=== PATIENT | male | born 1975 | race Caucasian/White ===

== ENCOUNTER 2019-12-28 10:56 | Day surgery (SDC) | payer OTHER ==
--- NOTE | 2019-12-28 11:00 | EDM.PDOC ---
<Maria Dolores Manzano - Last Filed: 12/28/19 13:46> ED HPI GENERAL MEDICAL PROBLEM - General Chief Complaint: Abdominal Pain Stated Complaint: STOMACH ACHE Time Seen by Provider: 12/28/19 10:57 Source of Information: Reports: Patient History Limitations: Reports: No Limitations - History of Present Illness INITIAL COMMENTS - FREE TEXT/NARRATIVE: Patient is a 44-year-old male presenting this morning with mid abdominal pain, constant with cramping sensation. States it began last night around midnight waking him up. Patient had a bowel movement but did not notice any changes in his symptoms. Endorses drinking 3-4 beers for dinner +steaks/potatoes. 1/2 PPD tobacco 2-3 beers nightly no ilicit drugs - Related Data Allergies Allergy/AdvReac Type Severity Reaction Status Date / Time No Known Allergies Allergy Verified 12/28/19 11:30 Home Meds: Home Meds . [No Known Home Meds] 12/28/19 [History] ED ROS GENERAL - Review of Systems Constitutional: Denies: Fever, Chills HEENT: Reports: No Symptoms Respiratory: Reports: No Symptoms Cardiovascular: Reports: No Symptoms Endocrine: Reports: No Symptoms GI/Abdominal: Reports: Abdominal Pain : Reports: No Symptoms Musculoskeletal: Reports: No Symptoms Neurological: Reports: No Symptoms ED EXAM, GI/ABD - Physical Exam Exam: See Below General Appearance: Alert, No Apparent Distress GI/Abdominal Exam: Soft, Other ( epigastric tenderness ; mild periumbilical tenderness, no rebound tenderness, no flank tenderness. BS WNL) Course - Vital Signs Text/Narrative:: CT abdomen pelvis ordered. Pain control: onetime morphine IV fluids: 1 liter NS provided Departure - Departure Disposition: Refer to Observation Clinical Impression: Appendicitis - Discharge Information Instructions: Appendicitis, Adult Referrals: PCP,None [Primary Care Provider] - Forms: ED Department Discharge <RogelioLeonardo - Last Filed: 12/28/19 15:32> ED HPI GENERAL MEDICAL PROBLEM - General Source of Information: Reports: Patient History Limitations: Reports: No Limitations - History of Present Illness INITIAL COMMENTS - FREE TEXT/NARRATIVE: 44-year-old male presents with abdominal pain that started last night around midnight. Denies fever, chills, last p.o. = 10:30 AM today. Pain is constant, described as cramping sensation, nonradiating, exacerbated by movement and driving to the ER. ROS: A 10-point review of systems, other than pertinent positives and negatives as stated per HPI, is otherwise negative PHYSICAL EXAM General: AOx4, GCS = 15, No distress HEENT: dry mucous membrane Neck: supple, no meningismus, no Kernig or Brudzinski Cardiac: S1S2 RRR Respiratory: CTAB, no crackles or rales, no wheezing Abdomen: Soft, mild tenderness diffusely, no rebound or guarding, nondistended, no pulsatile mass. Back: nontender Musculoskeletal: NVI distally, no deformity Neuro: No focal deficits, CN 2 - 12 WNL. Abdomen Pain Score (Numeric/FACES): 7 ED ROS GENERAL - Review of Systems Review Of Systems: Comprehensive ROS is negative, except as noted in HPI. ED EXAM, GI/ABD - Physical Exam Exam: See Below Course - Vital Signs Last Recorded V/S: Last Vital Signs Temp 98.1 F 12/28/19 11:25 Pulse 71 12/28/19 13:36 Resp 16 12/28/19 13:36 BP 175/100 H 12/28/19 13:36 Pulse Ox 96 12/28/19 13:36 - Orders/Labs/Meds Orders: Active Orders 24 hr Category Date Time Status EKG Documentation Completion [RC] STAT Care 12/28/19 11:46 Active CORONAVIRUS COVID-19 PCR PHL Stat Lab 12/28/19 14:37 Ordered Sodium Chloride 0.9% [Saline Flush] Med 12/28/19 11:33 Active 10 ml FLUSH ASDIRECTED PRN Sodium Chloride 0.9% [Saline Flush] Med 12/28/19 11:33 Active 2.5 ml FLUSH ASDIRECTED PRN Saline Lock Insert [OM.PC] Stat Oth 12/28/19 11:33 Ordered Medication Orders Sodium Chloride (Saline Flush) 10 ml FLUSH ASDIRECTED PRN PRN Reason: Keep Vein Open Last Admin: 12/28/19 12:06 Dose: 10 ml Documented by: [id number] Sodium Chloride (Saline Flush) 2.5 ml FLUSH ASDIRECTED PRN PRN Reason: Keep Vein Open Last Admin: 12/28/19 12:06 Dose: 2.5 ml Documented by: [id number] Labs: Laboratory Tests 12/28/19 12/28/19 12/28/19 Range/Units 11:40 11:45 11:45 WBC 9.93 (4.0-11.0) K/uL RBC 4.67 (4.50-5.90) M/uL Hgb 15.6 (13.0-17.0) g/dL Hct 44.7 (38.0-50.0) % MCV 95.7 (80.0-98.0) fL MCH 33.4 H (27.0-32.0) pg MCHC 34.9 (31.0-37.0) g/dL RDW Std Deviation 43.9 (28.0-62.0) fl RDW Coeff of Matt 13 (11.0-15.0) % Plt Count 182 (150-400) K/uL MPV 10.70 (7.40-12.00) fL Neut % (Auto) 76.2 (48.0-80.0) % Lymph % (Auto) 12.7 L (16.0-40.0) % [place] % (Auto) 9.1 (0.0-15.0) % Eos % (Auto) 1.7 (0.0-7.0) % Baso % (Auto) 0.3 (0.0-1.5) % Neut # (Auto) 7.6 H (1.4-5.7) K/uL Lymph # (Auto) 1.3 (0.6-2.4) K/uL [place] # (Auto) 0.9 H (0.0-0.8) K/uL Eos # (Auto) 0.2 (0.0-0.7) K/uL Baso # (Auto) 0.0 (0.0-0.1) K/uL Nucleated RBC % 0.0 /100WBC Nucleated RBCs # 0 K/uL Sodium 137 (136-148) mmol/L Potassium 4.2 (3.5-5.1) mmol/L Chloride 101 (98-107) mmol/L Carbon Dioxide 28.3 (21.0-32.0) mmol/L BUN 10 (7.0-18.0) mg/dL Creatinine 1.0 (0.8-1.3) mg/dL Est Cr Clr Drug Dosing 93.28 mL/min Estimated GFR (MDRD) > 60.0 ml/min Glucose 90 (74-106) mg/dL Calcium 9.0 (8.5-10.1) mg/dL Total Bilirubin 0.7 (0.2-1.0) mg/dL AST 17 (15-37) IU/L ALT 41 (14-63) IU/L Alkaline Phosphatase 30 L (46-116) U/L Troponin I (0.000-0.056) ng/mL Total Protein 7.0 (6.4-8.2) g/dL Albumin 4.2 (3.4-5.0) g/dL Globulin 2.8 (2.6-4.0) g/dL Albumin/Globulin Ratio 1.5 (0.9-1.6) Lipase 74 (73-393) U/L Urine Color YELLOW Urine Appearance CLEAR Urine pH 6.0 (5.0-8.0) Ur Specific [place] 1.025 (1.001-1.035) Urine Protein NEGATIVE (NEGATIVE) mg/dL Urine Glucose (UA) NEGATIVE (NEGATIVE) mg/dL Urine Ketones 15 H (NEGATIVE) mg/dL Urine Occult Blood TRACE-INTACT H (NEGATIVE) Urine Nitrite NEGATIVE (NEGATIVE) Urine Bilirubin NEGATIVE (NEGATIVE) Urine Urobilinogen 0.2 (<2.0) EU/dL Ur Leukocyte Esterase NEGATIVE (NEGATIVE) Urine RBC 0-2 (0-2/HPF) Urine WBC 0-1 (0-5/HPF) Ur Epithelial Cells RARE (NONE-FEW) Urine Bacteria RARE (NEGATIVE) SARS-CoV-2 RNA (RT-PCR) (NEGATIVE) 12/28/19 12/28/19 Range/Units 11:45 14:40 WBC (4.0-11.0) K/uL RBC (4.50-5.90) M/uL Hgb (13.0-17.0) g/dL Hct (38.0-50.0) % MCV (80.0-98.0) fL MCH (27.0-32.0) pg MCHC (31.0-37.0) g/dL RDW Std Deviation (28.0-62.0) fl RDW Coeff of Matt (11.0-15.0) % Plt Count (150-400) K/uL MPV (7.40-12.00) fL Neut % (Auto) (48.0-80.0) % Lymph % (Auto) (16.0-40.0) % [place] % (Auto) (0.0-15.0) % Eos % (Auto) (0.0-7.0) % Baso % (Auto) (0.0-1.5) % Neut # (Auto) (1.4-5.7) K/uL Lymph # (Auto) (0.6-2.4) K/uL [place] # (Auto) (0.0-0.8) K/uL Eos # (Auto) (0.0-0.7) K/uL Baso # (Auto) (0.0-0.1) K/uL Nucleated RBC % /100WBC Nucleated RBCs # K/uL Sodium (136-148) mmol/L Potassium (3.5-5.1) mmol/L Chloride (98-107) mmol/L Carbon Dioxide (21.0-32.0) mmol/L BUN (7.0-18.0) mg/dL Creatinine (0.8-1.3) mg/dL Est Cr Clr Drug Dosing mL/min Estimated GFR (MDRD) ml/min Glucose (74-106) mg/dL Calcium (8.5-10.1) mg/dL Total Bilirubin (0.2-1.0) mg/dL AST (15-37) IU/L ALT (14-63) IU/L Alkaline Phosphatase (46-116) U/L Troponin I <0.050 (0.000-0.056) ng/mL Total Protein (6.4-8.2) g/dL Albumin (3.4-5.0) g/dL Globulin (2.6-4.0) g/dL Albumin/Globulin Ratio (0.9-1.6) Lipase (73-393) U/L Urine Color Urine Appearance Urine pH (5.0-8.0) Ur Specific [place] (1.001-1.035) Urine Protein (NEGATIVE) mg/dL Urine Glucose (UA) (NEGATIVE) mg/dL Urine Ketones (NEGATIVE) mg/dL Urine Occult Blood (NEGATIVE) Urine Nitrite (NEGATIVE) Urine Bilirubin (NEGATIVE) Urine Urobilinogen (<2.0) EU/dL Ur Leukocyte Esterase (NEGATIVE) Urine RBC (0-2/HPF) Urine WBC (0-5/HPF) Ur Epithelial Cells (NONE-FEW) Urine Bacteria (NEGATIVE) SARS-CoV-2 RNA (RT-PCR) NEGATIVE (NEGATIVE) Meds: Medications Generic Name Dose Route Start Last Admin Trade Name Freq PRN Reason Stop Dose Admin Sodium Chloride 10 ml 12/28/19 11:33 12/28/19 12:06 Saline Flush FLUSH 10 ml ASDIRECTED PRN Administration Keep Vein Open Sodium Chloride 2.5 ml 12/28/19 11:33 12/28/19 12:06 Saline Flush FLUSH 2.5 ml ASDIRECTED PRN Administration Keep Vein Open Discontinued Medications Generic Name Dose Route Start Last Admin Trade Name Freq PRN Reason Stop Dose Admin Sodium Chloride 1,000 mls @ 999 mls/hr 12/28/19 11:33 12/28/19 12:05 Normal Saline IV 12/28/19 12:33 999 mls/hr BOLUS ONE Administration Sodium Chloride 1,000 mls @ 999 mls/hr 12/28/19 12:41 12/28/19 13:32 Normal Saline IV 12/28/19 13:41 999 mls/hr STAT ONE Administration Iopamidol 100 ml 12/28/19 14:15 12/28/19 14:16 Isovue-370 (76%) IVPUSH 12/28/19 14:16 100 ml ONETIME ONE Administration Morphine Sulfate 2 mg 12/28/19 13:17 12/28/19 13:35 Morphine IVPUSH 12/28/19 13:18 2 mg ONETIME ONE Administration Sodium Chloride 2.5 ml 12/28/19 11:33 Saline Flush FLUSH ASDIRECTED PRN Keep Vein Open - Re-Assessments/Exams Free Text/Narrative Re-Assessment/Exam: 12/28/19 14:[address] Rivas, he will come assess the patient in the ER. 12/28/19 15:31 Dr. Rivas in the ER, april admit to obs. Ordered IV Abx in the ER. Departure - Departure Time of Disposition: 15:30 Condition: Good - Discharge Information *PRESCRIPTION DRUG MONITORING PROGRAM REVIEWED*: Not Applicable *COPY OF PRESCRIPTION DRUG MONITORING REPORT IN PATIENT JOHNNA: Not Applicable Critical Care Note - Critical Care Note Total Time (mins): 40 Comments: Critical Care: The high probability of sudden, clinically significant deterioration in the patient's condition required the highest level of my preparedness to intervene urgently. The services I provided to this patient were to treat and/or prevent clinically significant deterioration. Services included the following: chart data review, reviewing nursing notes and/or old charts, documentation time, operations consultant collaboration regarding findings and treatment options, medication orders and management, direct patient care, vital sign assessments and ordering, interpreting and reviewing diagnostic studies/lab tests. Aggregate critical care time includes only time during which I was engaged in work directly related to the patient's care, as described above, whether at the bedside or elsewhere in the Emergency Department. It did not include time spent performing other reported procedures or the services of residents, students, nurses or physician assistants. Frequent interventions and/or frequent repeat evaluations were required as well as counseling and coordination of care regarding prognosis, treatments, and discussions with patient, staff and consultants. Critical Care (excluding other procedures): 40 minutes Sepsis Event Note (ED) - Focused Exam Vital Signs: Vital Signs Temp Pulse Resp BP Pulse Ox 12/28/19 13:36 71 16 175/100 H 96 12/28/19 11:25 98.1 F 68 16 176/96 H 97 - My Orders Last 24 Hours: My Active Orders 12/28/19 14:37 CORONAVIRUS COVID-19 PCR PHL Stat - Assessment/Plan Last 24 Hours: My Active Orders 12/28/19 14:37 CORONAVIRUS COVID-19 PCR PHL Stat
[2019-12-28] MEDS ORDERED: Sodium Chloride 0.9% 10 ML Syringe FLUSH PRN (11:33)
[2019-12-28] MEDS ORDERED: Sodium Chloride 0.9% 1,000 ML IV ONE ×2 (11:33→12:41)
[2019-12-28] MEDS ORDERED: Sodium Chloride 0.9% 2.5 ML Syringe FLUSH PRN ×2 (11:33)
[2019-12-28 12:35] LABS: BLOOD UREA NITROGEN,BUN 10 mg/dL (7.0-18.0); CARBON DIOXIDE,CO2 28.3 mmol/L (21.0-32.0); CHLORIDE,CL 101 mmol/L (98-107); GLUCOSE RANDOM 90 mg/dL (74-106); LIPASE 74 U/L (73-393); POTASSIUM,K 4.2 mmol/L (3.5-5.1); SODIUM,NA 137 mmol/L (136-148)
[2019-12-28] MEDS ORDERED: Morphine 4 MG/ML Syringe IVPUSH ONE ×3 (13:17→17:19)
[2019-12-28] MEDS ORDERED: Iopamidol 755 Mg/ML 100 ML Bottle IVPUSH ONE (14:15)
--- NOTE | 2019-12-28 14:33 | CT ---
CT abdomen and pelvis Technique: Multiple axial sections were obtained from above the dome of the diaphragm inferiorly through the pubic symphysis. Intravenous contrast was utilized. No oral contrast has been given. Dilated tubular structure is seen believed to represent the appendix within the right lower abdomen. Mild inflammatory change is seen around this area and findings are felt compatible with appendicitis. Other findings: Visualized lung bases shows nothing acute. Liver contains no focal abnormality. Gallbladder contains no calcified gallstones. Spleen appears within normal limits. Adrenal glands show no nodule. Kidneys show symmetric contrast enhancement without hydronephrosis or mass. Pancreas shows no abnormality. Aorta shows no aneurysm. No retroperitoneal adenopathy or mesenteric abnormalities are seen. No pelvic mass or adenopathy is seen. No free fluid or other inflammatory change is seen. Bone window settings were reviewed which shows no acute osseous finding. Impression: 1. Findings which are felt compatible with appendicitis. Diagnostic code #5 This report was dictated in MDT
[2019-12-28] MEDS ORDERED: cefOXitin 2 GM in Premix Bag 1 BAG IV ONE (15:32)
[2019-12-28] MEDS ORDERED: Ondansetron 4 MG/2 ML SDV IVPUSH ONE (15:32)
[2019-12-28] MEDS ORDERED: fentaNYL 100 MCG/2 ML SDV ONE (15:36)
[2019-12-28] MEDS ORDERED: Propofol 200 MG/20 ML SDV ONE (15:36)
[2019-12-28] MEDS ORDERED: Ondansetron 4 MG/2 ML SDV ONE (15:36)
[2019-12-28] MEDS ORDERED: Rocuronium Bromide 50 MG/5 ML Syringe ONE (15:37)
[2019-12-28] MEDS ORDERED: Ketorolac 30 MG/ML SDV ONE (15:37)
[2019-12-28] MEDS ORDERED: Dexamethasone 4 MG/ML 5 ML MDV ONE (15:37)
[2019-12-28] MEDS ORDERED: Midazolam 1 MG/ML 2 ML SDV ONE (15:37)
[2019-12-28] MEDS ORDERED: Lactated Ringers 1,000 ML IV SCH ×2 (15:45)
[2019-12-28] MEDS ORDERED: Bupivacaine 0.5% 10 ML SDV ONE (15:47)
[2019-12-28] MEDS ORDERED: ceFAZolin 1 GM Vial ONE (15:47)
--- NOTE | 2019-12-28 15:49 | PCM.CONS ---
H&P History of Present Illness - General Date of Service: 12/28/19 Admit Problem/Dx: Admission Diagnosis/Problem Admission Diagnosis/Problem Appendicitis Source of Information: Patient History Limitations: Reports: No Limitations - History of Present Illness Initial Comments - Free Text/Narative: Patient is a 44-year-old gentleman who presented to the emergency room about 11 :30 this morning complaining of significant abdominal pain, primarily in the right lower quadrant. Patient states the pain started late last night and has become progressively more intense as the day has gone on. He cannot find a comfortable position. He did note on the trip to the emergency room. The bumps in the road hit. He's had some nausea, no vomiting. Says his appetite is poor. This morning, but he was able to eat yesterday. He denies any fever or chills. Never had anything like this in the past. No prior history of kidney stones. Symptom Onset Date: 12/27/19 Duration of Symptoms: Reports: Hour(s):, Getting Worse Location: Reports: Abdomen Quality: Reports: Pressure Severity: Moderate Improves with: Reports: Rest Worsens with: Reports: Movement Context: Reports: Sick Contact Associated Symptoms: Reports: Loss of Appetite, Nausea/Vomiting. Denies: Confusion, Chest Pain, Fever/Chills, Headaches, Malaise Abdomen Pain Score (Numeric/FACES): 7 - Related Data Allergies/Adverse Reactions: Allergies Allergy/AdvReac Type Severity Reaction Status Date / Time No Known Allergies Allergy Verified 12/28/19 11:30 Home Medications: Home Meds . [No Known Home Meds] 12/28/19 [History] Past Medical History HEENT History: Reports: None Cardiovascular History: Reports: None Respiratory History: Reports: None Genitourinary History: Reports: None Musculoskeletal History: Reports: None Neurological History: Reports: None Psychiatric History: Reports: None Endocrine/Metabolic History: Reports: None Hematologic History: Reports: None Immunologic History: Reports: None Oncologic (Cancer) History: Reports: None Dermatologic History: Reports: None - Infectious Disease History Infectious Disease History: Reports: Chicken Pox - Past Surgical History Head Surgeries/Procedures: Reports: None HEENT Surgical History: Reports: Tonsillectomy GI Surgical History: Reports: Colonoscopy Social & Family History - Tobacco Use Smoking Status *Q: Current Every Day Smoker Years of Tobacco use: 27 Packs/Tins Daily: 0.5 - Recreational Drug Use Recreational Drug Use: No H&P Review of Systems - Review of Systems: Review Of Systems: See Below General: Reports: Decreased Appetite. Denies: Fever, Chills, Malaise, Weakness, Fatigue, Weight Loss HEENT: Reports: No Symptoms Pulmonary: Denies: Shortness of Breath, Wheezing, Pleuritic Chest Pain Cardiovascular: Denies: Chest Pain, Palpitations Gastrointestinal: Reports: Abdominal Pain, Anorexia, Flatus, Nausea. Denies: Black Stool, Bloody Stool, Constipation, Diarrhea, Distension, Vomiting Genitourinary: Denies: Dysuria, Frequency, Burning, Pain, Urgency Musculoskeletal: Reports: No Symptoms Skin: Denies: Cyanosis, Jaundice, Mottled, Pallor, Diaphoresis Psychiatric: Denies: Confusion, Depression, Mood Lability, Anxiety Neurological: Denies: Confusion, Dizziness, Headache, Numbness Hematologic/Lymphatic: Reports: No Symptoms Immunologic: Reports: No Symptoms Exam - Exam Exam: See Below - Vital Signs Vital Signs: Last Vital Signs Temp 98.1 F 12/28/19 11:25 Pulse 71 12/28/19 13:36 Resp 16 12/28/19 13:36 BP 175/100 H 12/28/19 13:36 Pulse Ox 96 12/28/19 13:36 Weight: 206 lb 9.17 oz - Exam Quality Assessment: No: Central Line/PICC, Urinary Catheter, DVT Prophylaxis General: Alert, Oriented, Cooperative, Mild Distress HEENT: Conjunctiva Clear, EACs Clear, Nares Patent, Pupils Equal, Pupils Reactive. No: Scleral Icterus Neck: Supple, Trachea Midline Lungs: Clear to Auscultation, Normal Respiratory Effort. No: Wheezing Cardiovascular: Regular Rate, Regular Rhythm, Normal S1, Normal S2. No: Tachycardia GI/Abdominal Exam: Normal Bowel Sounds, Soft, No Distention, Rebound, Tender (Right lower quadrant), Mass. No: Guarding, Rigid, Hernia (Male) Exam: No Hernia, Normal Inspection Rectal (Males) Exam: Deferred Back Exam: Normal Inspection, Full Range of Motion Extremities: Normal Inspection, Normal Range of Motion, Non-Tender, No Pedal Edema Peripheral Pulses: 4+: Posterior Tibial (L), Posterior Tibial (R), Dorsalis Pedis (L), Dorsalis Pedis (R) Skin: Warm, Dry, Intact Neurological: Cranial Nerves Intact Psychiatric: Alert, Normal Affect, Normal Mood - Patient Data Lab Results Last 24 hrs: Laboratory Results - last 24 hr 12/28/19 12/28/19 12/28/19 Range/Units 11:40 11:45 11:45 WBC 9.93 (4.0-11.0) K/uL RBC 4.67 (4.50-5.90) M/uL Hgb 15.6 (13.0-17.0) g/dL Hct 44.7 (38.0-50.0) % MCV 95.7 (80.0-98.0) fL MCH 33.4 H (27.0-32.0) pg MCHC 34.9 (31.0-37.0) g/dL RDW Std Deviation 43.9 (28.0-62.0) fl RDW Coeff of Matt 13 (11.0-15.0) % Plt Count 182 (150-400) K/uL MPV 10.70 (7.40-12.00) fL Neut % (Auto) 76.2 (48.0-80.0) % Lymph % (Auto) 12.7 L (16.0-40.0) % [place] % (Auto) 9.1 (0.0-15.0) % Eos % (Auto) 1.7 (0.0-7.0) % Baso % (Auto) 0.3 (0.0-1.5) % Neut # (Auto) 7.6 H (1.4-5.7) K/uL Lymph # (Auto) 1.3 (0.6-2.4) K/uL [place] # (Auto) 0.9 H (0.0-0.8) K/uL Eos # (Auto) 0.2 (0.0-0.7) K/uL Baso # (Auto) 0.0 (0.0-0.1) K/uL Nucleated RBC % 0.0 /100WBC Nucleated RBCs # 0 K/uL Sodium 137 (136-148) mmol/L Potassium 4.2 (3.5-5.1) mmol/L Chloride 101 (98-107) mmol/L Carbon Dioxide 28.3 (21.0-32.0) mmol/L BUN 10 (7.0-18.0) mg/dL Creatinine 1.0 (0.8-1.3) mg/dL Est Cr Clr Drug Dosing 93.28 mL/min Estimated GFR (MDRD) > 60.0 ml/min Glucose 90 (74-106) mg/dL Calcium 9.0 (8.5-10.1) mg/dL Total Bilirubin 0.7 (0.2-1.0) mg/dL AST 17 (15-37) IU/L ALT 41 (14-63) IU/L Alkaline Phosphatase 30 L (46-116) U/L Troponin I (0.000-0.056) ng/mL Total Protein 7.0 (6.4-8.2) g/dL Albumin 4.2 (3.4-5.0) g/dL Globulin 2.8 (2.6-4.0) g/dL Albumin/Globulin Ratio 1.5 (0.9-1.6) Lipase 74 (73-393) U/L Urine Color YELLOW Urine Appearance CLEAR Urine pH 6.0 (5.0-8.0) Ur Specific [place] 1.025 (1.001-1.035) Urine Protein NEGATIVE (NEGATIVE) mg/dL Urine Glucose (UA) NEGATIVE (NEGATIVE) mg/dL Urine Ketones 15 H (NEGATIVE) mg/dL Urine Occult Blood TRACE-INTACT H (NEGATIVE) Urine Nitrite NEGATIVE (NEGATIVE) Urine Bilirubin NEGATIVE (NEGATIVE) Urine Urobilinogen 0.2 (<2.0) EU/dL Ur Leukocyte Esterase NEGATIVE (NEGATIVE) Urine RBC 0-2 (0-2/HPF) Urine WBC 0-1 (0-5/HPF) Ur Epithelial Cells RARE (NONE-FEW) Urine Bacteria RARE (NEGATIVE) SARS-CoV-2 RNA (RT-PCR) (NEGATIVE) 12/28/19 12/28/19 Range/Units 11:45 14:40 WBC (4.0-11.0) K/uL RBC (4.50-5.90) M/uL Hgb (13.0-17.0) g/dL Hct (38.0-50.0) % MCV (80.0-98.0) fL MCH (27.0-32.0) pg MCHC (31.0-37.0) g/dL RDW Std Deviation (28.0-62.0) fl RDW Coeff of Matt (11.0-15.0) % Plt Count (150-400) K/uL MPV (7.40-12.00) fL Neut % (Auto) (48.0-80.0) % Lymph % (Auto) (16.0-40.0) % [place] % (Auto) (0.0-15.0) % Eos % (Auto) (0.0-7.0) % Baso % (Auto) (0.0-1.5) % Neut # (Auto) (1.4-5.7) K/uL Lymph # (Auto) (0.6-2.4) K/uL [place] # (Auto) (0.0-0.8) K/uL Eos # (Auto) (0.0-0.7) K/uL Baso # (Auto) (0.0-0.1) K/uL Nucleated RBC % /100WBC Nucleated RBCs # K/uL Sodium (136-148) mmol/L Potassium (3.5-5.1) mmol/L Chloride (98-107) mmol/L Carbon Dioxide (21.0-32.0) mmol/L BUN (7.0-18.0) mg/dL Creatinine (0.8-1.3) mg/dL Est Cr Clr Drug Dosing mL/min Estimated GFR (MDRD) ml/min Glucose (74-106) mg/dL Calcium (8.5-10.1) mg/dL Total Bilirubin (0.2-1.0) mg/dL AST (15-37) IU/L ALT (14-63) IU/L Alkaline Phosphatase (46-116) U/L Troponin I <0.050 (0.000-0.056) ng/mL Total Protein (6.4-8.2) g/dL Albumin (3.4-5.0) g/dL Globulin (2.6-4.0) g/dL Albumin/Globulin Ratio (0.9-1.6) Lipase (73-393) U/L Urine Color Urine Appearance Urine pH (5.0-8.0) Ur Specific [place] (1.001-1.035) Urine Protein (NEGATIVE) mg/dL Urine Glucose (UA) (NEGATIVE) mg/dL Urine Ketones (NEGATIVE) mg/dL Urine Occult Blood (NEGATIVE) Urine Nitrite (NEGATIVE) Urine Bilirubin (NEGATIVE) Urine Urobilinogen (<2.0) EU/dL Ur Leukocyte Esterase (NEGATIVE) Urine RBC (0-2/HPF) Urine WBC (0-5/HPF) Ur Epithelial Cells (NONE-FEW) Urine Bacteria (NEGATIVE) SARS-CoV-2 RNA (RT-PCR) NEGATIVE (NEGATIVE) Result Diagrams: 12/28/19 11:45 12/28/19 11:45 Sepsis Event Note - Evaluation Sepsis Screening Result: No Definite Risk - Focused Exam Vital Signs: Vital Signs Temp Pulse Resp BP Pulse Ox 12/28/19 13:36 71 16 175/100 H 96 12/28/19 11:25 98.1 F 68 16 176/96 H 97 Date Exam was Performed: 12/28/19 Time Exam was Performed: 15:45 Consult PN Assessment/Plan (1) Acute abdomen SNOMED Code(s): 3359349 Code(s): R10.0 - ACUTE ABDOMEN Current Visit: Yes (2) Appendicitis SNOMED Code(s): 53135917 Code(s): K37 - UNSPECIFIED APPENDICITIS Current Visit: Yes Qualifiers: Appendicitis type: acute appendicitis Problem List Initiated/Reviewed/Updated: Yes My Orders Last 24 Hours: My Active Orders 12/28/19 15:43 Antiembolic Devices [RC] PER UNIT ROUTINE Insert Urinary Catheter [OM.PC] Timed Oxygen Therapy [RC] ASDIRECTED RT Incentive Spirometry [RC] Q1HWA Skin Preparation [RC] .PREOP Urinary Catheter Assessment [RC] ASDIRECTED Urinary Catheter Assessment [RC] ASDIRECTED Urinary Catheter Assessment [RC] ASDIRECTED Vital Signs [RC] PER UNIT ROUTINE Antiembolic Hose [OM.PC] Routine Resuscitation Status Routine 12/28/19 15:45 Lactated Ringers @ 125 MLS/HR(1000ml) Lactated Ringers [Ringers, Lactated] 1,000 ml IV ASDIRECTED 12/28/19 Dinner Nothing Per Oral Diet [DIET] Plan: Laparoscopic appendectomy, possible open appendectomy. Both operative procedures, along with the risks, including, but not limited to, bleeding, infection, pneumonia, deep venous thrombosis, pulmonary emboli, myocardial infarction, and adjacent organ injury have been reviewed with the patient who voices understanding, offers no questions and agrees to proceed.
[2019-12-28] MEDS ORDERED: Sugammadex Sodium 200 MG/2 ML VIAL ONE (15:59)
[2019-12-28] MEDS ORDERED: Glycopyrrolate 0.2 MG/ML SDV ONE (16:00)
--- NOTE | 2019-12-28 16:13 | PCM.PREANE ---
Preanesthetic Assessment - Procedure Proposed Procedure: LAP APPY - Anesthesia/Transfusion/Family Hx Anesthesia History: Prior Anesthesia Without Reaction Type of Anesthesia Reaction: Unknown Family History of Anesthesia Reaction: No Transfusion History: No Prior Transfusion(s) Intubation History: Intubation other than for Surgery in past - Review of Systems General: No Symptoms Pulmonary: Other (Resumed smoking recently.) Cardiovascular: No Symptoms, Other (BP elevated. Denies HTN) Gastrointestinal: Abdominal Pain Neurological: No Symptoms Other: Reports: Anxiety - Physical Assessment NPO Status Date: 12/28/19 NPO Status Time: 10:00 (Liquids at 10a. No solids since 8pm 12/26.) Vital Signs: Last Vital Signs Temp 36.7 C 12/28/19 11:25 Pulse 71 12/28/19 13:36 Resp 16 12/28/19 13:36 BP 175/100 H 12/28/19 13:36 Pulse Ox 96 12/28/19 13:36 Height: 1.75 m Weight: 93.7 kg ASA Class: 2E Mental Status: Alert & Oriented x3 Airway Class: Mallampati = 2 Dentition: Reports: Normal Dentition Thyro-Mental Finger Breadths: 3 Mouth Opening Finger Breadths: 3 ROM/Head Extension: Full Lungs: Clear to Auscultation Cardiovascular: Regular Rate - Lab Values: Laboratory Last Values WBC 9.93 K/uL (4.0-11.0) 12/28/19 11:45 RBC 4.67 M/uL (4.50-5.90) 12/28/19 11:45 Hgb 15.6 g/dL (13.0-17.0) 12/28/19 11:45 Hct 44.7 % (38.0-50.0) 12/28/19 11:45 MCV 95.7 fL (80.0-98.0) 12/28/19 11:45 MCH 33.4 pg (27.0-32.0) H 12/28/19 11:45 MCHC 34.9 g/dL (31.0-37.0) 12/28/19 11:45 RDW Std Deviation 43.9 fl (28.0-62.0) 12/28/19 11:45 RDW Coeff of Matt 13 % (11.0-15.0) 12/28/19 11:45 Plt Count 182 K/uL (150-400) 12/28/19 11:45 MPV 10.70 fL (7.40-12.00) 12/28/19 11:45 Neut % (Auto) 76.2 % (48.0-80.0) 12/28/19 11:45 Lymph % (Auto) 12.7 % (16.0-40.0) L 12/28/19 11:45 Payne % (Auto) 9.1 % (0.0-15.0) 12/28/19 11:45 Eos % (Auto) 1.7 % (0.0-7.0) 12/28/19 11:45 Baso % (Auto) 0.3 % (0.0-1.5) 12/28/19 11:45 Neut # (Auto) 7.6 K/uL (1.4-5.7) H 12/28/19 11:45 Lymph # (Auto) 1.3 K/uL (0.6-2.4) 12/28/19 11:45 Payne # (Auto) 0.9 K/uL (0.0-0.8) H 12/28/19 11:45 Eos # (Auto) 0.2 K/uL (0.0-0.7) 12/28/19 11:45 Baso # (Auto) 0.0 K/uL (0.0-0.1) 12/28/19 11:45 Nucleated RBC % 0.0 /100WBC 12/28/19 11:45 Nucleated RBCs # 0 K/uL 12/28/19 11:45 Sodium 137 mmol/L (136-148) 12/28/19 11:45 Potassium 4.2 mmol/L (3.5-5.1) 12/28/19 11:45 Chloride 101 mmol/L (98-107) 12/28/19 11:45 Carbon Dioxide 28.3 mmol/L (21.0-32.0) 12/28/19 11:45 BUN 10 mg/dL (7.0-18.0) 12/28/19 11:45 Creatinine 1.0 mg/dL (0.8-1.3) 12/28/19 11:45 Est Cr Clr Drug Dosing 93.28 mL/min 12/28/19 11:45 Estimated GFR (MDRD) > 60.0 ml/min 12/28/19 11:45 Glucose 90 mg/dL (74-106) 12/28/19 11:45 Calcium 9.0 mg/dL (8.5-10.1) 12/28/19 11:45 Total Bilirubin 0.7 mg/dL (0.2-1.0) 12/28/19 11:45 AST 17 IU/L (15-37) 12/28/19 11:45 ALT 41 IU/L (14-63) 12/28/19 11:45 Alkaline Phosphatase 30 U/L (46-116) L 12/28/19 11:45 Troponin I <0.050 ng/mL (0.000-0.056) 12/28/19 11:45 Total Protein 7.0 g/dL (6.4-8.2) 12/28/19 11:45 Albumin 4.2 g/dL (3.4-5.0) 12/28/19 11:45 Globulin 2.8 g/dL (2.6-4.0) 12/28/19 11:45 Albumin/Globulin Ratio 1.5 (0.9-1.6) 12/28/19 11:45 Lipase 74 U/L (73-393) 12/28/19 11:45 Urine Color YELLOW 12/28/19 11:40 Urine Appearance CLEAR 12/28/19 11:40 Urine pH 6.0 (5.0-8.0) 12/28/19 11:40 Ur Specific [place] 1.025 (1.001-1.035) 12/28/19 11:40 Urine Protein NEGATIVE mg/dL (NEGATIVE) 12/28/19 11:40 Urine Glucose (UA) NEGATIVE mg/dL (NEGATIVE) 12/28/19 11:40 Urine Ketones 15 mg/dL (NEGATIVE) H 12/28/19 11:40 Urine Occult Blood TRACE-INTACT (NEGATIVE) H 12/28/19 11:40 Urine Nitrite NEGATIVE (NEGATIVE) 12/28/19 11:40 Urine Bilirubin NEGATIVE (NEGATIVE) 12/28/19 11:40 Urine Urobilinogen 0.2 EU/dL (<2.0) 12/28/19 11:40 Ur Leukocyte Esterase NEGATIVE (NEGATIVE) 12/28/19 11:40 Urine RBC 0-2 (0-2/HPF) 12/28/19 11:40 Urine WBC 0-1 (0-5/HPF) 12/28/19 11:40 Ur Epithelial Cells RARE (NONE-FEW) 12/28/19 11:40 Urine Bacteria RARE (NEGATIVE) 12/28/19 11:40 SARS-CoV-2 RNA (RT-PCR) NEGATIVE (NEGATIVE) 12/28/19 14:40 - Allergies Allergies/Adverse Reactions: Allergies Allergy/AdvReac Type Severity Reaction Status Date / Time No Known Allergies Allergy Verified 12/28/19 11:30 - Blood Blood Available: No Product(s) Available: None - Anesthesia Plan Pre-Op Medication Ordered: None - Acknowledgements Anesthesia Type Planned: General Anesthesia Pt an Appropriate Candidate for the Planned Anesthesia: Yes Alternatives and Risks of Anesthesia Discussed w Pt/Guardian: Yes Pt/Guardian Understands and Agrees with Anesthesia Plan: Yes Additional Comments: Discussed. ? answered. Permit signed. Acceptable candidate. PreAnesthesia Questionnaire HEENT History: Reports: None Cardiovascular History: Reports: None Respiratory History: Reports: None Genitourinary History: Reports: None Musculoskeletal History: Reports: None Neurological History: Reports: None Psychiatric History: Reports: None Endocrine/Metabolic History: Reports: None Hematologic History: Reports: None Immunologic History: Reports: None Oncologic (Cancer) History: Reports: None Dermatologic History: Reports: None - Infectious Disease History Infectious Disease History: Reports: Chicken Pox - Past Surgical History Head Surgeries/Procedures: Reports: None HEENT Surgical History: Reports: Tonsillectomy GI Surgical History: Reports: Colonoscopy - SUBSTANCE USE Smoking Status *Q: Current Every Day Smoker Recreational Drug Use History: No - HOME MEDS Home Medications: Home Meds . [No Known Home Meds] 12/28/19 [History] - CURRENT (IN HOUSE) MEDS Current Meds: Current Medications Lactated Ringer's (Ringers, Lactated) 1,000 mls @ 125 mls/hr IV ASDIRECTED NANY Sodium Chloride (Saline Flush) 10 ml FLUSH ASDIRECTED PRN PRN Reason: Keep Vein Open Last Admin: 12/28/19 12:06 Dose: 10 ml Documented by: Sodium Chloride (Saline Flush) 2.5 ml FLUSH ASDIRECTED PRN PRN Reason: Keep Vein Open Last Admin: 12/28/19 12:06 Dose: 2.5 ml Documented by: Discontinued Medications Bupivacaine HCl (Sensorcaine-Mpf 0.5%) Confirm Administered Dose 10 ml .ROUTE .STK-MED ONE Stop: 12/28/19 15:48 Cefazolin Sodium (Ancef) Confirm Administered Dose 1 gm .ROUTE .STK-MED ONE Stop: 12/28/19 15:48 Dexamethasone (Dexamethasone) Confirm Administered Dose 20 mg .ROUTE .STK-MED ONE Stop: 12/28/19 15:38 Fentanyl (Sublimaze) Confirm Administered Dose 200 mcg .ROUTE .STK-MED ONE Stop: 12/28/19 15:37 Glycopyrrolate (Robinul) Confirm Administered Dose 0.2 mg .ROUTE .STK-MED ONE Stop: 12/28/19 16:01 Sodium Chloride (Normal Saline) 1,000 mls @ 999 mls/hr IV BOLUS ONE Stop: 12/28/19 12:33 Last Admin: 12/28/19 12:05 Dose: 999 mls/hr Documented by: Sodium Chloride (Normal Saline) 1,000 mls @ 999 mls/hr IV STAT ONE Stop: 12/28/19 13:41 Last Admin: 12/28/19 13:32 Dose: 999 mls/hr Documented by: Lactated Ringer's (Ringers, Lactated) 1,000 mls @ 150 mls/hr IV ASDIRECTED [facility] Last Admin: 12/28/19 15:50 Dose: 150 mls/hr Documented by: Cefoxitin Sodium 2 gm/ Premix 50 mls @ 100 mls/hr IV ONETIME ONE Stop: 12/28/19 16:01 Last Admin: 12/28/19 15:50 Dose: 100 mls/hr Documented by: Acetaminophen (Ofirmev) Confirm Administered Dose 100 mls @ as directed .ROUTE .STK-MED ONE Stop: 12/28/19 16:01 Iopamidol (Isovue-370 (76%)) 100 ml IVPUSH ONETIME ONE Stop: 12/28/19 14:16 Last Admin: 12/28/19 14:16 Dose: 100 ml Documented by: Ketorolac Tromethamine (Toradol) Confirm Administered Dose 30 mg .ROUTE .STK-MED ONE Stop: 12/28/19 15:38 Lidocaine HCl (Xylocaine-Mpf 1%) Confirm Administered Dose 5 ml .ROUTE .STK-MED ONE Stop: 12/28/19 15:37 Midazolam HCl (Versed 1 Mg/Ml) Confirm Administered Dose 2 mg .ROUTE .STK-MED ONE Stop: 12/28/19 15:38 Morphine Sulfate (Morphine) 2 mg IVPUSH ONETIME ONE Stop: 12/28/19 13:18 Last Admin: 12/28/19 13:35 Dose: 2 mg Documented by: Morphine Sulfate (Morphine) 2 mg IVPUSH ONETIME ONE Stop: 12/28/19 15:32 Last Admin: 12/28/19 15:51 Dose: 2 mg Documented by: Ondansetron HCl (Zofran) 4 mg IVPUSH ONETIME ONE Stop: 12/28/19 15:33 Last Admin: 12/28/19 15:51 Dose: 4 mg Documented by: Ondansetron HCl (Zofran) Confirm Administered Dose 4 mg .ROUTE .STK-MED ONE Stop: 12/28/19 15:37 Propofol (Diprivan 20 Ml) Confirm Administered Dose 400 mg .ROUTE .STK-MED ONE Stop: 12/28/19 15:37 Rocuronium [place] (Rocuronium [place]) Confirm Administered Dose 100 mg .ROUTE .STK-MED ONE Stop: 12/28/19 15:38 Sodium Chloride (Saline Flush) 2.5 ml FLUSH ASDIRECTED PRN PRN Reason: Keep Vein Open Sugammadex Sodium (Bridion) Confirm Administered Dose 200 mg .ROUTE .STK-MED ONE Stop: 12/28/19 16:00
[2019-12-28] MEDS ORDERED: Morphine 10 MG/ML Syringe ONE (16:37)
[2019-12-28] MEDS ORDERED: cefOXitin 1 GM Vial ONE (17:10)
[2019-12-28] MEDS ORDERED: Ondansetron 4 MG/2 ML SDV IVPUSH PRN (17:48)
[2019-12-28] MEDS ORDERED: Morphine 10 MG/ML Syringe IVPUSH PRN (17:48)
[2019-12-28] MEDS ORDERED: Acetaminophen 325 MG Tab PO PRN (17:48)
--- NOTE | 2019-12-28 17:50 | PCM.OPNOTE ---
- General Post-Op/Procedure Note Date of Surgery/Procedure: 12/28/19 Operative Procedure(s): Laparoscopic appendectomy Pre Op Diagnosis: Acute abdomen Post-Op Diagnosis: Acute separative appendicitis without perforation Anesthesia Technique: General ET Tube (ASA IIE) Primary Surgeon: Audi Rivas Fluid Replacement, Intraop: 1,400 Output, Urine Amount: 450 EBL in mLs: 10 Condition: Stable Free Text/Narrative:: DICTATION [id number] CPT CODE 12637
[2019-12-28] MEDS ORDERED: cefOXitin 1 GM in Premix Bag 1 BAG IV SCH (18:00)
--- NOTE | 2019-12-28 18:05 | PCM.POSTAN ---
POST ANESTHESIA ASSESSMENT - MENTAL STATUS Mental Status: Alert - VITAL SIGNS Vital Signs: Last Vital Signs Temp 37.0 C 12/28/19 17:42 Pulse 89 12/28/19 17:54 Resp 15 12/28/19 17:54 BP 154/77 H 12/28/19 17:54 Pulse Ox 95 12/28/19 17:54 - RESPIRATORY Respiratory Status: Respiratory Rate WNL - CARDIOVASCULAR CV Status: Pulse Rate WNL - GASTROINTESTINAL GI Status: No Symptoms - PAIN Pain Score: 1 (Soreness) - POST OP HYDRATION Hydration Status: Adequate & Stable (Doing well. A&0x3. Ready for transfer to floor.)
[2019-12-28] MEDS: Lactated Ringers 1,000 ML IV SCH (18:46)
[2019-12-28] MEDS: Acetaminophen/HYDROcodone 325-5 MG Tab PO PRN (21:44)
[2019-12-28] MEDS: cefOXitin 1 GM in Premix Bag 1 BAG IV SCH (21:47)
[2019-12-29] MEDS: Acetaminophen/HYDROcodone 325-5 MG Tab PO PRN ×3 (01:49→10:24)
[2019-12-29] MEDS: Lactated Ringers 1,000 ML IV SCH (03:54)
[2019-12-29] MEDS: cefOXitin 1 GM in Premix Bag 1 BAG IV SCH ×2 (04:00→09:05)
--- NOTE | 2019-12-29 07:54 | PCM48HPAN ---
Post Anesthesia Note - EVALUATION WITHIN 48HRS OF ANESTHETIC Vital Signs in Normal Range: Yes Patient Participated in Evaluation: Yes Respiratory Function Stable: Yes Airway Patent: Yes Cardiovascular Function Stable: Yes Hydration Status Stable: Yes Pain Control Satisfactory: Yes (Some residual soreness, well controlled.) Nausea and Vomiting Control Satisfactory: Yes Mental Status Recovered: Yes Vital Signs: Last Vital Signs Temp 37.2 C 12/29/19 04:00 Pulse 84 12/29/19 04:00 Resp 16 12/29/19 04:00 BP 124/69 12/29/19 04:00 Pulse Ox 90 L 12/29/19 04:00 - COMMENTS/OBSERVATIONS Free Text/Narrative:: Doing well. No post problems noted. Ready for discharge.
[2019-12-29] MEDS ORDERED: traMADol 50 MG Tab PO PRN (09:54)
--- NOTE | 2019-12-29 18:15 | OR ---
SURGEON: Audi Rivas M.D. DATE OF PROCEDURE: 12/28/2019 OPERATION PERFORMED: Laparoscopic appendectomy. PRIMARY SURGEON: Audi Rivas MD. ANESTHESIA: General endotracheal. ASA CLASSIFICATION: III. PREOPERATIVE DIAGNOSIS: Acute abdomen. POSTOPERATIVE DIAGNOSIS: Acute appendicitis without rupture. ESTIMATED BLOOD LOSS: 10 mL. INTRAOPERATIVE FLUID REPLACEMENT: 1400 mL of crystalloid. INTRAOPERATIVE URINARY OUTPUT: 450 mL. DESCRIPTION OF PROCEDURE: The patient was taken to the operating room and placed on the operating table in the supine position. Time-out was called for appropriate identification of the patient and procedure. Sequential compression boots were placed. Following satisfactory attainment of general endotracheal anesthesia, a Tai catheter was placed in the patient's urinary bladder. The abdomen was prepped with DuraPrep solution and sterile drapes were applied. The skin above the umbilicus was infiltrated with 0.5% Marcaine solution. Skin incision was made and deepened through the subcutaneous tissue obtaining hemostasis with the use of electrocautery. The Veress needle was introduced into the peritoneal cavity. Saline drop test was positive. Carbon dioxide pneumoperitoneum was established with the release set at 13 cm of water. Once satisfactory pneumoperitoneum was established, 5 mm camera and port were inserted through the supraumbilical incision. The patient was now positioned with his head down and rolled to the left. Under camera vision, 12 mm suprapubic and 5 mm left lower quadrant ports were placed. Each incision had preemptively been infiltrated with 0.5% Marcaine solution. The appendix was grasped. The appendix base appeared clean, however, the appendix itself was acutely inflamed and stuck in the right lower quadrant. Using the Harmonic scalpel. I was able to free the adhesions and mobilize the appendix. Once that was accomplished, the mesoappendix was taken down with the Harmonic scalpel. The base of the appendix was then stapled with the Endo-SHEILA blue load staple. The appendix was properly placed in an Endo Catch bag and remained in situ. The right lower quadrant was then inspected for hemostasis. No bleeding was noted. The right lower quadrant was then irrigated with several hundred milliliters of 1% Mefoxin solution. All fluid was aspirated. The right lower quadrant was again inspected for hemostasis and no purulent material was noted and there was no bleeding. The 12 mm port and Endo Catch containing appendix were removed through this suprapubic incision. Under camera vision, the 5 mm left lower quadrant port was removed and finally the supraumbilical camera and port were removed. Wounds were inspected for hemostasis and small bleeding sites were electrocoagulated. The suprapubic and supraumbilical incisions were closed in 2 layers approximating the subcutaneous tissue with 3-0 Vicryl and the skin with subcuticular 4-0 Monocryl. The left lower quadrant incision was closed with subcuticular 4-0 Monocryl. All incisions were Steri- Stripped and dressed with sterile Tegaderm pads. Sponge, needle, and instrument counts were all correct. Tai catheter was removed prior to emergence from anesthesia. Following emergence from anesthesia and extubation, the patient was taken to recovery room in stable condition. GARTH FONTENOT /[id number]
== END 2019-12-29 10:49 | disposition home or self-care (01) ==
LOC: MW.ED 10:56 → MW.SDS 15:34 → MW.MS 18:09 → MW.SDS 12-29 10:49
PROVIDERS: ATTEND Surgery
DX: K35.32 Acute appendicitis with perforation, localized peritonitis, and gangrene, without abscess (principal); F17.210 Nicotine dependence, cigarettes, uncomplicated; F41.9 Anxiety disorder, unspecified; Z11.59 Encounter for screening for other viral diseases; Z98.890 Other specified postprocedural states
CPT/HCPCS: 36415; 44970; 74177; 80053; 81001; 83690; 84484; 85025; 87635; 93005; 96374; 96375; 96376; 99291; A9270; J0131; J0694; J1100; J1885; J2001; J2250; J2270; J2405; J2704; J3010; J3490; J7030; J7120; Q9967; J0690; U0002

== ENCOUNTER 2019-12-31 19:57 | Observation (INO) | payer OTHER ==
--- NOTE | 2019-12-31 20:15 | EDM.PDOC ---
<Remington Gray E - Last Filed: 12/31/19 22:03> ED HPI GENERAL MEDICAL PROBLEM - General Chief Complaint: Gastrointestinal Problem Stated Complaint: POST SURGICAL VOMITING Time Seen by Provider: 12/31/19 20:13 Source of Information: Reports: Patient History Limitations: Reports: No Limitations - History of Present Illness INITIAL COMMENTS - FREE TEXT/NARRATIVE: HISTORY AND PHYSICAL: History of present illness: Patient had a laparoscopic appendectomy on 12/28/[address] Rivas. He was discharged to home with a script for pain medication. He states due to the Holiday Weekend (28 of December) everything was closed. His had some left over Oxycodone that he had been using. States he started having some nausea, vomiting and loose stools since yesterday (coincidently when he stopped taking the oxycodone). He has generalized abdominal pain, which he attributes to his recent surgery - doesn't describe it any worse than it has been over the past two days. Patient denies any fever, chills, headache, change in vision, syncope or near syncope. Denies any chest pain, back pain, shortness of breath or cough. Denies any constipation, dysuria, nor blood in urine or stool. Patient has been eating and drinking appropriately. Review of systems: As per history of present illness and below otherwise all systems reviewed and negative. Past medical history: As per history of present illness and as reviewed below otherwise noncontributory. Surgical history: As per history of present illness and as reviewed below otherwise noncontributory. Social history: See social history for further information Family history: As per history of present illness and as reviewed below otherwise noncontributory. Physical exam: General: Well-developed and well-nourished 44-year-old male. Alert and oriented. Nontoxic-appearing and in no acute distress. Vital signs are stable and have been reviewed by me. HEENT: Atraumatic, normocephalic, pupils equal and reactive bilaterally, negative for conjunctival pallor or scleral icterus, mucous membranes moist, TMs normal bilaterally, throat clear, neck supple, nontender, trachea midline. No drooling or trismus noted. No meningeal signs. No hot potato voice noted. Lungs: Clear to auscultation, breath sounds equal bilaterally, chest nontender. Heart: S1S2, regular rate and rhythm without overt murmur Abdomen: Soft, nondistended, mild tenderness over post-operative sites. Negative for masses or costovertebral tenderness. Skin: Stab sites x 3 look free of infection. No redness or drainage. Mild tenderness and soft tissue swelling. Otherwise skin is intact, warm, dry. No lesions or rashes noted. Extremities: Atraumatic, moves all extremities per self without difficulty or deficits, negative for cords or calf pain. Neurovascular unremarkable. Neuro: Awake, alert, oriented. Cranial nerves II through XII unremarkable. Cerebellum unremarkable. Motor and sensory unremarkable throughout. Exam nonfocal. Notes: Lab work is unremarkable. Supportive care measures were reviewed and discussed. Voices understanding and is agreeable to plan of care. Denies any further questions or concerns at this time. Diagnostics: CBC, CMP, UA, Stool Studies, CT abd/pelvis Therapeutics: IV fluids, Zofran Prescription: Zofran Impression: Nausea and vomiting Plan: 1. Use the zofran as needed and as directed. Small frequent sips of fluids to prevent dehydration. 2. Take your prescribed pain medications as needed. You could alternate Tylenol and Ibuprofen as needed for pain. 2. Follow up with Dr Rivas as you already have directed. Should your symptoms worsen, new symptoms develop or anything we discussed here in the ED occurs- please return to the ED for re-evaluation. Definitive disposition and diagnosis as appropriate pending reevaluation and review of above. - Related Data Allergies Allergy/AdvReac Type Severity Reaction Status Date / Time No Known Allergies Allergy Verified 12/31/19 20:43 Home Meds: Home Meds Hydrocodone/Acetaminophen [Hydrocodone-Acetamin 10-300 mg] each PO ASDIRECTED PRN 12/31/19 [History] Past Medical History HEENT History: Reports: None Cardiovascular History: Reports: None Respiratory History: Reports: None Genitourinary History: Reports: None Musculoskeletal History: Reports: None Neurological History: Reports: None Psychiatric History: Reports: None Endocrine/Metabolic History: Reports: None Hematologic History: Reports: None Immunologic History: Reports: None Oncologic (Cancer) History: Reports: None Dermatologic History: Reports: None - Infectious Disease History Infectious Disease History: Reports: Chicken Pox - Past Surgical History Head Surgeries/Procedures: Reports: None HEENT Surgical History: Reports: Tonsillectomy GI Surgical History: Reports: Colonoscopy ED ROS GENERAL - Review of Systems Review Of Systems: Comprehensive ROS is negative, except as noted in HPI. ED EXAM, GI/ABD - Physical Exam Exam: See Below (See dictation) Departure - Departure Disposition: Admitted As Inpatient 65 Clinical Impression: SBO (small bowel obstruction) Pneumonia Qualifiers: Pneumonia type: due to unspecified organism Laterality: right Lung location: lower lobe of lung Qualified Code(s): J18.9 - Pneumonia, unspecified organism Nausea and vomiting Qualifiers: Vomiting type: unspecified Vomiting Intractability: unspecified Qualified Code(s): R11.2 - Nausea with vomiting, unspecified - Discharge Information <Scott Mccallian - Last Filed: 01/01/20 01:27> Course - Vital Signs Text/Narrative:: I assumed care of this patient from NNAMDI Gray at 2200 hrs. 3 days status post laparoscopic appendectomy on 12/28/19 (Dr. Rivas). Now presenting with persistent nausea, vomiting, loose stools, and fevers at home for the past 2 or so days. Lab work at this point is reassuring. We are awaiting CT imaging of the abdomen/pelvis to look for any postoperative complication such as an infectious process, SBO, ileus, etc. CT abdomen/pelvis returned concerning for fluid around the operative site, unclear if this is due to the procedure itself or if it is pus. Also demonstrated a small bowel obstruction and noted a right basilar pulmonary infiltrate with associated pleural effusion. When I reevaluate the patient he is hypoxic to 90% on room air and has low-grade tachycardia in the low 100s. He complains of mild shortness of breath. I obtained a chest x-ray which demonstrated a right basilar infiltrate. Added on a lactate which is elevated at 2.7. Obtained a urinalysis showing ketones and trace blood with moderate bilirubinuria. The patient was made n.p.o. and I paged the surgeon Dr. Soto. He is concerned about the SBO and would favor admission of the hospital and I am in agreement. We will plan for IV antibiotics given concern for infection, given IV vancomycin and Zosyn. Unclear if the pulmonary infiltrate represents pneumonia or possibly a pulmonary embolism given recent postoperative state. I did discuss my concerns for PE with Dr. Soto and he states that he will order a CT pulmonary angiogram since this discussion was had after the patient was transferred to the inpatient unit. Last Recorded V/S: Last Vital Signs Temp 36.8 C 01/01/20 00:39 Pulse 88 01/01/20 00:39 Resp 20 01/01/20 00:39 BP 156/93 H 01/01/20 00:39 Pulse Ox 94 L 01/01/20 00:39 - Orders/Labs/Meds Orders: Active Orders 24 hr Category Date Time Status NPO [Nothing Per Oral Diet] [DIET] Diet 01/01/20 Breakfast Active CAMPYLOBACTER CULT [MREF] Stat Lab 12/31/19 20:48 Ordered STOOL CULTURE/SHIGA TOXIN [MREF] Stat Lab 12/31/19 20:48 Ordered Medication Orders Lactated Ringer's (Ringers, Lactated) 1,000 mls @ 125 mls/hr IV ASDIRECTED NANY Piperacillin Sod/Tazobactam (Sod 3.375 gm/ Sodium Chloride) 50 mls @ 100 mls/hr IV Q8H NANY Last Admin: 01/01/20 01:15 Dose: 100 mls/hr Documented by: SY Pantoprazole Sodium 40 mg/ (Sodium Chloride) 10 mls @ 300 mls/hr IV DAILY [facility] Labs: Laboratory Tests 12/31/19 12/31/19 12/31/19 Range/Units 21:19 21:19 21:19 WBC 10.58 (4.0-11.0) K/uL RBC 4.86 (4.50-5.90) M/uL Hgb 16.3 (13.0-17.0) g/dL Hct 46.4 (38.0-50.0) % MCV 95.5 (80.0-98.0) fL MCH 33.5 H (27.0-32.0) pg MCHC 35.1 (31.0-37.0) g/dL RDW Std Deviation 43.2 (28.0-62.0) fl RDW Coeff of Matt 12 (11.0-15.0) % Plt Count 215 (150-400) K/uL MPV 10.70 (7.40-12.00) fL Neut % (Auto) 78.9 (48.0-80.0) % Lymph % (Auto) 8.1 L (16.0-40.0) % Marin % (Auto) 11.2 (0.0-15.0) % Eos % (Auto) 1.6 (0.0-7.0) % Baso % (Auto) 0.2 (0.0-1.5) % Neut # (Auto) 8.3 H (1.4-5.7) K/uL Lymph # (Auto) 0.9 (0.6-2.4) K/uL Marin # (Auto) 1.2 H (0.0-0.8) K/uL Eos # (Auto) 0.2 (0.0-0.7) K/uL Baso # (Auto) 0.0 (0.0-0.1) K/uL Nucleated RBC % 0.0 /100WBC Nucleated RBCs # 0 K/uL Lactate 2.7 H* (0.20-2.00) mmol/L Sodium 139 (136-148) mmol/L Potassium 4.0 (3.5-5.1) mmol/L Chloride 99 (98-107) mmol/L Carbon Dioxide 25.3 (21.0-32.0) mmol/L BUN 16 (7.0-18.0) mg/dL Creatinine 1.0 (0.8-1.3) mg/dL Est Cr Clr Drug Dosing 93.28 mL/min Estimated GFR (MDRD) > 60.0 ml/min Glucose 100 (74-106) mg/dL Calcium 9.8 (8.5-10.1) mg/dL Total Bilirubin 0.8 (0.2-1.0) mg/dL AST 20 (15-37) IU/L ALT 26 (14-63) IU/L Alkaline Phosphatase 26 L (46-116) U/L Total Protein 7.7 (6.4-8.2) g/dL Albumin 3.1 L (3.4-5.0) g/dL Globulin 4.6 H (2.6-4.0) g/dL Albumin/Globulin Ratio 0.7 L (0.9-1.6) Meds: Medications Generic Name Dose Route Start Last Admin Trade Name Freq PRN Reason Stop Dose Admin Lactated Ringer's 1,000 mls @ 125 mls/hr 12/31/19 23:45 Ringers, Lactated IV ASDIRECTED NANY Piperacillin Sod/Tazobactam 50 mls @ 100 mls/hr 01/01/20 00:00 01/01/20 01:15 Sod 3.375 gm/ Sodium Chloride IV 100 mls/hr Q8H NANY Administration Pantoprazole Sodium 40 mg/ 10 mls @ 300 mls/hr 01/01/20 09:00 Sodium Chloride IV DAILY NANY Discontinued Medications Generic Name Dose Route Start Last Admin Trade Name Gricel PRN Reason Stop Dose Admin Sodium Chloride 1,000 mls @ 999 mls/hr 12/31/19 20:47 12/31/19 21:20 Normal Saline IV 12/31/19 21:47 999 mls/hr STAT ONE Administration Lactated Ringer's 1,000 mls @ 999 mls/hr 12/31/19 23:26 01/01/20 00:21 Ringers, Lactated IV 01/01/20 00:26 999 mls/hr .BOLUS ONE Administration Piperacillin Sod/Tazobactam 100 mls @ 200 mls/hr 12/31/19 23:44 01/01/20 00:36 Sod 4.5 gm/ Sodium Chloride IV 01/01/20 00:13 Not Given STAT ONE Vancomycin HCl 1.5 gm/ 250 mls @ 167 mls/hr 12/31/19 23:44 01/01/20 01:09 Dextrose/Water IV 01/01/20 01:13 Not Given ONETIME ONE Iopamidol 100 ml 12/31/19 22:16 12/31/19 22:17 Isovue-370 (76%) IVPUSH 12/31/19 22:17 100 ml ONETIME STA Administration Ondansetron HCl 4 mg 12/31/19 20:47 12/31/19 21:20 Zofran IVPUSH 12/31/19 20:48 4 mg ONETIME ONE Administration Departure - Departure Time of Disposition: 23:48 Sepsis Event Note (ED) - Focused Exam Vital Signs: Vital Signs Temp Pulse Resp BP Pulse Ox 12/31/19 20:50 147/101 H 12/31/19 20:44 36.6 C 115 H 20 179/117 H 92 L - My Orders Last 24 Hours: My Active Orders 01/01/20 Breakfast NPO [Nothing Per Oral Diet] [DIET] - Assessment/Plan Last 24 Hours: My Active Orders 01/01/20 Breakfast NPO [Nothing Per Oral Diet] [DIET]
[2019-12-31] MEDS ORDERED: Sodium Chloride 0.9% 1,000 ML IV ONE (20:47)
[2019-12-31] MEDS ORDERED: Ondansetron 4 MG/2 ML SDV IVPUSH ONE (20:47)
[2019-12-31 21:51] LABS: BLOOD UREA NITROGEN,BUN 16 mg/dL (7.0-18.0); CARBON DIOXIDE,CO2 25.3 mmol/L (21.0-32.0); CHLORIDE,CL 99 mmol/L (98-107); GLUCOSE RANDOM 100 mg/dL (74-106); SODIUM,NA 139 mmol/L (136-148)
[2019-12-31] MEDS ORDERED: Iopamidol 755 Mg/ML 100 ML Bottle IVPUSH STA (22:16)
--- NOTE | 2019-12-31 22:44 | CT ---
CT abdomen and pelvis Technique: Multiple axial sections were obtained from above the dome of the diaphragm inferiorly through the pubic symphysis. Intravenous contrast was utilized. No oral contrast has been given. Findings: Comparison: Previous CT abdomen and pelvis study of 12/28/19. Findings: Small right-sided pleural effusion is seen. Thick areas of increased density are noted within both lung bases most likely due to prominent atelectasis. Liver shows no focal abnormality. Spleen appears within normal limits. Pancreas is within normal limits. Adrenal glands show no abnormality. Kidneys show symmetric contrast enhancement with no hydronephrosis or mass being seen. Aorta shows no aneurysm. Dilated small bowel loops are seen containing fluid. Surgical material is identified off the tip of the cecum compatible with recent appendectomy. There is free fluid being seen within the pelvis involving the dependent portions. Uncertain if this is due to fluid is from previous surgery or represents pus. Scattered areas of mild inflammatory change within the right abdomen are seen believed to represent surgical change. Bone window settings were reviewed which appear within normal limits for the patient's age. Impression: 1. Densities within both lung bases most likely due to prominent atelectasis. Small right-sided pleural effusion is seen. 2. Surgical material compatible with recent appendectomy. 3. Fluid within the dependent portions of the pelvis, uncertain if this represents fluid from previous surgery or represents pus. 4. Dilated loops of small bowel. This may represent a partial mid partial small bowel obstruction or represents asymmetric small bowel ileus from prior surgery. 5. Mild inflammatory change scattered within the right abdomen most likely postsurgical. Diagnostic code #3 This report was dictated in MDT
[2019-12-31] MEDS ORDERED: Lactated Ringers 1,000 ML IV ONE (23:26)
[2019-12-31] MEDS ORDERED: Piperacillin/Tazobactam 4.5 GM in Sodium Chloride 0.9% 100 ML IV ONE (23:44)
[2019-12-31] MEDS ORDERED: Vancomycin 1.5 GM in Dextrose 5% in Water 250 ML IV ONE ×2 (23:44)
--- NOTE | 2019-12-31 23:46 | CR ---
HISTORY: Shortness of breath and hypoxia. COMPARISON: None. FINDINGS: The PA and lateral views of the chest. Airspace opacity in the right lower lobe may present pneumonia. Probable small right pleural effusion. Heart size and pulmonary vascularity are within normal limits. Dictated by Janet Rodriguez MD @ Dec 31 2019 11:42PM Signed by Dr. Janet Rodriguez @ Dec 31 2019 11:43PM
--- NOTE | 2020-01-01 00:04 | PCM.SN.2 ---
- Free Text/Narrative Note: pt seen, chart reviewed; postop ileus/possible pneumonia, admitted for observation; [id number]
[2020-01-01] MEDS: Piperacillin/Tazobactam 3.375 GM in Sodium Chloride 0.9% 50 ML IV SCH ×4 (01:15→23:16)
[2020-01-01] MEDS: Lactated Ringers 1,000 ML IV SCH ×3 (02:08→20:28)
[2020-01-01] MEDS ORDERED: Iopamidol 755 MG/ML 50 ML Bottle IV STA (02:53)
--- NOTE | 2020-01-01 04:02 | CT ---
INDICATION: [id number], s/p appendectomy 4 days ago COMPARISON: None TECHNIQUE: Contrast enhanced axial CT imaging through the chest, optimized for assessment of the pulmonary arterial tree. 50 mL Isovue 370 contrast agent was administered intravenously. Sagittal and coronal reconstructions are provided. FINDINGS: There is adequate opacification of the pulmonary arterial tree. Small filling defects consistent with nonocclusive thromboemboli are noted in the proximal right upper lobe pulmonary artery and right middle lobe pulmonary artery. The main pulmonary artery is nondilated. The heart is non enlarged. RV: LV ratio is 1.0, elevated. There is no pericardial effusion. There is normal caliber of the thoracic aorta. There is no mediastinal lymphadenopathy. There is moderate bibasilar atelectasis. There is no pleural effusion or pneumothorax. The thoracic osseous structures are unremarkable. No significant abnormality is demonstrated in the visualized upper abdomen. IMPRESSION: 1. Small nonocclusive thromboemboli within the proximal right upper lobe and right middle lobe pulmonary arteries. 2. Elevated RV: LV ratio, suggesting right heart strain. Correlate clinically. 3. Moderate bibasilar atelectasis. Please note that all CT scans at this facility use dose modulation, iterative reconstruction, and/or weight-based dosing when appropriate to reduce radiation dose to as low as reasonably achievable. Dictated by Joelle Higgins MD @ Jan 01 2020 3:37AM Signed by Dr. Joelle Higgins @ Jan 01 2020 4:02AM
--- NOTE | 2020-01-01 05:11 | PCM.SN.2 ---
- Free Text/Narrative Note: chest CT PE protocol reading nonocclusive PE and Right heart strain; pt is currently hemodynamically stable, vital sign stable, and no chest pain/sycope or in any circulatory problem. put pt to telemetry, hep bolus and hep iv drip per protocol. all had communicated to pt, re results and treatment plan. pt concurred and proceed.
[2020-01-01] MEDS ORDERED: Heparin Sod,Pork In 0.45% Nacl 25,000 UNIT/500 ML IV.SOLN IV SCH (05:30)
[2020-01-01] MEDS ORDERED: Heparin Sodium 5,000 Units/ML Vial IVPUSH ONE ×3 (05:32→18:17)
[2020-01-01] MEDS: Pantoprazole 40 MG in Sodium Chloride 0.9% 10 ML IV SCH (05:46)
[2020-01-01] MEDS ORDERED: Pantoprazole 40 MG in Sodium Chloride 0.9% 10 ML IV SCH (09:00)
[2020-01-01] MEDS ORDERED: Morphine 10 MG/ML Syringe IVPUSH PRN (09:04)
[2020-01-01] MEDS ORDERED: Ondansetron 4 MG/2 ML SDV IVPUSH PRN (09:04)
--- NOTE | 2020-01-01 10:55 | CONS ---
DATE OF CONSULTATION: 01/01/2020 DATE OF : 1975 PRIMARY CARE PHYSICIAN: None PCP HISTORY AND PHYSICAL AND EMERGENCY ROOM CONSULTATION: Consult from Dr. Bobby Mccall, ER provider. Consulting question is nausea and vomiting. HISTORY OF PRESENT ILLNESS: The patient is a 44-year-old gentleman postop day 3 from a laparoscopic appendectomy by Dr. Rivas. The patient remarked that he was doing fine when he went home, and pain was almost none on the day he went home from the surgery. The next day, he drank a lot of water, and then he started to have abdominal pain, and the next day, that is postop day 2, he tried some breakfast and lunch, and both were thrown up. He then sought help in the emergency room. In the emergency room, he was noted to be tachycardic and sweaty but denied any abdominal pain, and he was also hypoxic at room air, saturating at 92%. CAT scan shows right side pneumonia or right side infiltrate and some abdominal fluid, which is postop day 3, possible from the surgery, and also, CAT scan shows an early small-bowel obstruction. Of note, the patient remarked that he has been having diarrhea, 3 times on the day of admission, and passing gas, and at the time of examination, he denied nausea and vomiting at all. He said it has all resolved. PAST MEDICAL HISTORY: Please refer to nursing notes for details. PAST SURGICAL HISTORY: Please refer to nursing notes for details. ALLERGIES: Please refer to nursing notes for details. MEDICATIONS: Please refer to nursing notes for details. FAMILY HISTORY: Noncontributory. SOCIAL HISTORY: Refer to the last surgical admission note. PHYSICAL EXAMINATION: GENERAL: Interestingly, the patient looks many times better than the number or the CAT scan. He, in fact, smiles to the doctor and denies any abdominal pain whatsoever, considering the fact it is only day 3 from his surgery, and denies nausea and denies shortness of breath. HEENT: Normocephalic and atraumatic. Sclerae are anicteric. LUNGS: Clear to auscultation. Breath sounds on both sides. NECK: Trachea is midline. No subcu crepitus. ABDOMEN: Soft and nontender. A surgical dressing is on the surgical trocar site and clean, dry, and intact. The patient does have slight alteration in bowel sounds consistent with an early bowel obstruction. However, again, the patient has no pain absolutely. ADMISSION LABORATORY VALUES: White count is 10.58, H and H are 16 and 46, and platelets are 215. Lactate is 2.7. BUN is 16, creatinine is 1, and potassium is 4.0. Albumin is 3.1. IMPRESSION: Clinically looks like a fantastic young man but with a CAT scan showing early bowel obstruction, on examination also suggests some compromise of the bowel motility, and as a matter of fact, the patient may need nasogastric tube insertion but clinically he looks so good and denied nausea and vomiting and had bowel movement 3 times on the day of admission. We will leave him alone for the time being and admit for observation and also tell our nursing staff if the patient has emesis, we will insert a nasogastric tube. For the time being, n.p.o., IV fluid, IV antibiotic for possible pneumonia, and follow with serial abdominal examinations. Abscess is a little bit too early, considering the fact that the patient has absolutely no abdominal pain, so we will admit for observation. As always, thank you for your kind referral. BOUCHRA / CORIE /[id number]
--- NOTE | 2020-01-01 11:46 | PCM.HP.2 ---
H&P History of Present Illness - General Date of Service: 01/01/20 Admit Problem/Dx: Admission Diagnosis/Problem Admission Diagnosis/Problem Ileus Source of Information: Patient History Limitations: Reports: No Limitations - History of Present Illness Symptom Onset Date: 12/31/19 Duration of Symptoms: Reports: Hour(s): Location: Reports: Abdomen Quality: Reports: Pressure Severity: Moderate Improves with: Reports: Rest Worsens with: Reports: Eating Associated Symptoms: Reports: Loss of Appetite, Nausea/Vomiting. Denies: Confusion, Chest Pain, Cough, Diaphoresis, Fever/Chills, Shortness of Breath, Syncope - Related Data Allergies/Adverse Reactions: Allergies Allergy/AdvReac Type Severity Reaction Status Date / Time No Known Allergies Allergy Verified 12/31/19 20:43 Home Medications: Home Meds Hydrocodone/Acetaminophen [Hydrocodone-Acetamin 10-300 mg] each PO ASDIRECTED PRN 12/31/19 [History] Past Medical History HEENT History: Reports: None Cardiovascular History: Reports: None Respiratory History: Reports: None Genitourinary History: Reports: None Musculoskeletal History: Reports: None Neurological History: Reports: None Psychiatric History: Reports: None Endocrine/Metabolic History: Reports: None Hematologic History: Reports: None Immunologic History: Reports: None Oncologic (Cancer) History: Reports: None Dermatologic History: Reports: None - Infectious Disease History Infectious Disease History: Reports: Chicken Pox - Past Surgical History Head Surgeries/Procedures: Reports: None HEENT Surgical History: Reports: Tonsillectomy GI Surgical History: Reports: Colonoscopy Social & Family History - Family History Family Medical History: Noncontributory - Tobacco Use Smoking Status *Q: Current Every Day Smoker Years of Tobacco use: 1 Packs/Tins Daily: 0.5 Used Tobacco, but Quit: Yes Month/Year Tobacco Last Used: had quit for 13 years and started Second Hand Smoke Exposure: No - Caffeine Use Caffeine Use: Reports: Coffee, Energy Drinks, Soda - Alcohol Use Days Per Week of Alcohol Use: 7 Number of Drinks Per Day: 2 Total Drinks Per Week: 14 Date of Last Drink: 12/28/19 - Recreational Drug Use Recreational Drug Use: No H&P Review of Systems - Review of Systems: Review Of Systems: See Below General: Reports: Malaise, Weakness. Denies: Fever, Chills, Fatigue, Night Sweats, Diaphoresis HEENT: Reports: No Symptoms Pulmonary: Denies: Shortness of Breath, Wheezing, Hemoptysis Cardiovascular: Denies: Chest Pain, Palpitations, Lightheadedness, Syncope, Claudication Gastrointestinal: Reports: Abdominal Pain, Anorexia, Diarrhea, Decreased Appetite, Distension, Flatus, Nausea, Vomiting. Denies: Black Stool, Bloody Stool, Constipation, Difficulty Swallowing, Hematemesis, Hematochezia, Melena Genitourinary: Denies: Dysuria, Frequency, Burning, Pain, Urgency Musculoskeletal: Reports: No Symptoms Skin: Denies: Cyanosis, Jaundice, Mottled, Pallor, Diaphoresis Psychiatric: Reports: No Symptoms Neurological: Reports: No Symptoms Hematologic/Lymphatic: Reports: No Symptoms Immunologic: Reports: No Symptoms Exam - Exam Exam: See Below - Vital Signs Vital Signs: Last Vital Signs Temp 98.2 F 01/01/20 08:00 Pulse 77 01/01/20 08:00 Resp 18 01/01/20 08:00 BP 143/84 H 01/01/20 08:00 Pulse Ox 93 L 01/01/20 08:00 Weight: 205 lb 1.6 oz - Exam Quality Assessment: Supplemental Oxygen, DVT Prophylaxis. No: Central Line/PICC, Urinary Catheter, Skin Breakdown General: Alert, Oriented, Cooperative, Mild Distress HEENT: Conjunctiva Clear, EACs Clear, Nares Patent, Pupils Equal, Pupils Reactive. No: Scleral Icterus Neck: Supple, Trachea Midline Lungs: Clear to Auscultation, Normal Respiratory Effort. No: Decreased Breath Sounds, Crackles, Rales, Rhonchi, Wheezing Cardiovascular: Regular Rate, Regular Rhythm. No: Tachycardia, Systolic Murmur, Diastolic Murmur GI/Abdominal Exam: Soft, Non-Tender, No Distention, No Mass, Abnormal Bowel Sounds (hypoactive). No: Guarding, Rigid, Rebound (Male) Exam: No Hernia, Normal Inspection Rectal (Males) Exam: Deferred Back Exam: Normal Inspection Extremities: Normal Inspection, Normal Range of Motion, Non-Tender, No Pedal Edema, Normal Capillary Refill. No: Lisa's Sign Peripheral Pulses: 4+: Posterior Tibial (L), Posterior Tibial (R), Dorsalis Pedis (L), Dorsalis Pedis (R) Skin: Warm, Dry, Intact Neurological: Cranial Nerves Intact Psychiatric: Alert, Normal Affect, Normal Mood. No: Anxious, Depressed, Agitated - Patient Data Lab Results Last 24 hrs: Laboratory Results - last 24 hr 12/31/19 12/31/19 12/31/19 Range/Units 21:19 21:19 21:19 WBC 10.58 (4.0-11.0) K/uL RBC 4.86 (4.50-5.90) M/uL Hgb 16.3 (13.0-17.0) g/dL Hct 46.4 (38.0-50.0) % MCV 95.5 (80.0-98.0) fL MCH 33.5 H (27.0-32.0) pg MCHC 35.1 (31.0-37.0) g/dL RDW Std Deviation 43.2 (28.0-62.0) fl RDW Coeff of Matt 12 (11.0-15.0) % Plt Count 215 (150-400) K/uL MPV 10.70 (7.40-12.00) fL Neut % (Auto) 78.9 (48.0-80.0) % Lymph % (Auto) 8.1 L (16.0-40.0) % [place] % (Auto) 11.2 (0.0-15.0) % Eos % (Auto) 1.6 (0.0-7.0) % Baso % (Auto) 0.2 (0.0-1.5) % Neut # (Auto) 8.3 H (1.4-5.7) K/uL Lymph # (Auto) 0.9 (0.6-2.4) K/uL [place] # (Auto) 1.2 H (0.0-0.8) K/uL Eos # (Auto) 0.2 (0.0-0.7) K/uL Baso # (Auto) 0.0 (0.0-0.1) K/uL Nucleated RBC % 0.0 /100WBC Nucleated RBCs # 0 K/uL INR APTT (18.6-31.3) SEC Lactate 2.7 H* (0.20-2.00) mmol/L Sodium 139 (136-148) mmol/L Potassium 4.0 (3.5-5.1) mmol/L Chloride 99 (98-107) mmol/L Carbon Dioxide 25.3 (21.0-32.0) mmol/L BUN 16 (7.0-18.0) mg/dL Creatinine 1.0 (0.8-1.3) mg/dL Est Cr Clr Drug Dosing 93.28 mL/min Estimated GFR (MDRD) > 60.0 ml/min Glucose 100 (74-106) mg/dL Calcium 9.8 (8.5-10.1) mg/dL Total Bilirubin 0.8 (0.2-1.0) mg/dL AST 20 (15-37) IU/L ALT 26 (14-63) IU/L Alkaline Phosphatase 26 L (46-116) U/L Troponin I (0.000-0.056) ng/mL Total Protein 7.7 (6.4-8.2) g/dL Albumin 3.1 L (3.4-5.0) g/dL Globulin 4.6 H (2.6-4.0) g/dL Albumin/Globulin Ratio 0.7 L (0.9-1.6) Urine Color Urine Appearance Urine pH (5.0-8.0) Ur Specific [place] (1.001-1.035) Urine Protein (NEGATIVE) mg/dL Urine Glucose (UA) (NEGATIVE) mg/dL Urine Ketones (NEGATIVE) mg/dL Urine Occult Blood (NEGATIVE) Urine Nitrite (NEGATIVE) Urine Bilirubin (NEGATIVE) Urine Ictotest Urine Urobilinogen (<2.0) EU/dL Ur Leukocyte Esterase (NEGATIVE) Urine RBC (0-2/HPF) Urine WBC (0-5/HPF) Ur Epithelial Cells (NONE-FEW) Urine Bacteria (NEGATIVE) Urine Mucus (NONE-MOD) 01/01/20 01/01/20 01/01/20 Range/Units 00:44 01:00 05:00 WBC (4.0-11.0) K/uL RBC (4.50-5.90) M/uL Hgb (13.0-17.0) g/dL Hct (38.0-50.0) % MCV (80.0-98.0) fL MCH (27.0-32.0) pg MCHC (31.0-37.0) g/dL RDW Std Deviation (28.0-62.0) fl RDW Coeff of Matt (11.0-15.0) % Plt Count (150-400) K/uL MPV (7.40-12.00) fL Neut % (Auto) (48.0-80.0) % Lymph % (Auto) (16.0-40.0) % [place] % (Auto) (0.0-15.0) % Eos % (Auto) (0.0-7.0) % Baso % (Auto) (0.0-1.5) % Neut # (Auto) (1.4-5.7) K/uL Lymph # (Auto) (0.6-2.4) K/uL [place] # (Auto) (0.0-0.8) K/uL Eos # (Auto) (0.0-0.7) K/uL Baso # (Auto) (0.0-0.1) K/uL Nucleated RBC % /100WBC Nucleated RBCs # K/uL INR 0.97 APTT (18.6-31.3) SEC Lactate (0.20-2.00) mmol/L Sodium (136-148) mmol/L Potassium (3.5-5.1) mmol/L Chloride (98-107) mmol/L Carbon Dioxide (21.0-32.0) mmol/L BUN (7.0-18.0) mg/dL Creatinine (0.8-1.3) mg/dL Est Cr Clr Drug Dosing mL/min Estimated GFR (MDRD) ml/min Glucose (74-106) mg/dL Calcium (8.5-10.1) mg/dL Total Bilirubin (0.2-1.0) mg/dL AST (15-37) IU/L ALT (14-63) IU/L Alkaline Phosphatase (46-116) U/L Troponin I < 0.050 (0.000-0.056) ng/mL Total Protein (6.4-8.2) g/dL Albumin (3.4-5.0) g/dL Globulin (2.6-4.0) g/dL Albumin/Globulin Ratio (0.9-1.6) Urine Color YELLOW Urine Appearance CLEAR Urine pH 6.0 (5.0-8.0) Ur Specific [place] 1.010 (1.001-1.035) Urine Protein 30 H (NEGATIVE) mg/dL Urine Glucose (UA) NEGATIVE (NEGATIVE) mg/dL Urine Ketones 40 H (NEGATIVE) mg/dL Urine Occult Blood TRACE-INTACT H (NEGATIVE) Urine Nitrite NEGATIVE (NEGATIVE) Urine Bilirubin MODERATE H (NEGATIVE) Urine Ictotest NEGATIVE Urine Urobilinogen 1.0 (<2.0) EU/dL Ur Leukocyte Esterase NEGATIVE (NEGATIVE) Urine RBC NONE SEEN (0-2/HPF) Urine WBC 0-1 (0-5/HPF) Ur Epithelial Cells RARE (NONE-FEW) Urine Bacteria FEW (NEGATIVE) Urine Mucus LIGHT (NONE-MOD) 01/01/20 01/01/20 Range/Units 05:00 08:52 WBC (4.0-11.0) K/uL RBC (4.50-5.90) M/uL Hgb (13.0-17.0) g/dL Hct (38.0-50.0) % MCV (80.0-98.0) fL MCH (27.0-32.0) pg MCHC (31.0-37.0) g/dL RDW Std Deviation (28.0-62.0) fl RDW Coeff of Matt (11.0-15.0) % Plt Count (150-400) K/uL MPV (7.40-12.00) fL Neut % (Auto) (48.0-80.0) % Lymph % (Auto) (16.0-40.0) % [place] % (Auto) (0.0-15.0) % Eos % (Auto) (0.0-7.0) % Baso % (Auto) (0.0-1.5) % Neut # (Auto) (1.4-5.7) K/uL Lymph # (Auto) (0.6-2.4) K/uL [place] # (Auto) (0.0-0.8) K/uL Eos # (Auto) (0.0-0.7) K/uL Baso # (Auto) (0.0-0.1) K/uL Nucleated RBC % /100WBC Nucleated RBCs # K/uL INR APTT 29.2 (18.6-31.3) SEC Lactate 1.0 (0.20-2.00) mmol/L Sodium (136-148) mmol/L Potassium (3.5-5.1) mmol/L Chloride (98-107) mmol/L Carbon Dioxide (21.0-32.0) mmol/L BUN (7.0-18.0) mg/dL Creatinine (0.8-1.3) mg/dL Est Cr Clr Drug Dosing mL/min Estimated GFR (MDRD) ml/min Glucose (74-106) mg/dL Calcium (8.5-10.1) mg/dL Total Bilirubin (0.2-1.0) mg/dL AST (15-37) IU/L ALT (14-63) IU/L Alkaline Phosphatase (46-116) U/L Troponin I (0.000-0.056) ng/mL Total Protein (6.4-8.2) g/dL Albumin (3.4-5.0) g/dL Globulin (2.6-4.0) g/dL Albumin/Globulin Ratio (0.9-1.6) Urine Color Urine Appearance Urine pH (5.0-8.0) Ur Specific [place] (1.001-1.035) Urine Protein (NEGATIVE) mg/dL Urine Glucose (UA) (NEGATIVE) mg/dL Urine Ketones (NEGATIVE) mg/dL Urine Occult Blood (NEGATIVE) Urine Nitrite (NEGATIVE) Urine Bilirubin (NEGATIVE) Urine Ictotest Urine Urobilinogen (<2.0) EU/dL Ur Leukocyte Esterase (NEGATIVE) Urine RBC (0-2/HPF) Urine WBC (0-5/HPF) Ur Epithelial Cells (NONE-FEW) Urine Bacteria (NEGATIVE) Urine Mucus (NONE-MOD) Result Diagrams: 12/31/19 21:19 12/31/19 21:19 Sepsis Event Note - Evaluation Sepsis Screening Result: No Definite Risk - Focused Exam Vital Signs: Vital Signs Temp Pulse Resp BP Pulse Ox 01/01/20 08:00 98.2 F 77 18 143/84 H 93 L 01/01/20 04:40 99.3 F 86 18 147/85 H 96 01/01/20 00:39 98.2 F 88 20 156/93 H 94 L 01/01/20 00:22 98.4 F 91 18 143/87 H 93 L Date Exam was Performed: 01/01/20 Time Exam was Performed: 11:40 - Problem List (1) Ileus SNOMED Code(s): 351827652 ICD Code: K56.7 - ILEUS, UNSPECIFIED Status: Acute Priority: High Current Visit: Yes (2) Pulmonary embolus, right SNOMED Code(s): 83855439 ICD Code: I26.99 - OTHER PULMONARY EMBOLISM WITHOUT ACUTE COR PULMONALE Status: Acute Priority: High Current Visit: Yes (3) Nausea and vomiting SNOMED Code(s): 84269076 ICD Code: R11.2 - NAUSEA WITH VOMITING, UNSPECIFIED Status: Acute Priority: Medium Current Visit: Yes Qualifiers: Vomiting type: unspecified Vomiting Intractability: unspecified Qualified Code(s): R11.2 - Nausea with vomiting, unspecified Problem List Initiated/Reviewed/Updated: Yes Orders Last 24hrs: Active Orders 24 hr Category Date Time Status Admission Status [Patient Status] [ADT] Stat ADT 12/31/19 23:48 Active Notify Provider Consults [RC] ASDIRECTED Care 01/01/20 08:56 Active Telemetry Monitoring [Cardiac Monitoring] [RC] Q8H Care 01/01/20 04:38 Active Consult to Physician [CONS] Routine Cons 01/01/20 08:54 Active Clear Liquid Diet [DIET] Diet 01/01/20 Breakfast Active PTT,PARTIAL THROMBOPLSTIN TIME [COAG] Q6H Lab 01/01/20 11:30 Ordered PTT,PARTIAL THROMBOPLSTIN TIME [COAG] Q6H Lab 01/01/20 17:30 Ordered PTT,PARTIAL THROMBOPLSTIN TIME [COAG] Q6H Lab 01/01/20 23:30 Ordered PTT,PARTIAL THROMBOPLSTIN TIME [COAG] Q6H Lab 01/02/20 05:30 Ordered PTT,PARTIAL THROMBOPLSTIN TIME [COAG] Q6H Lab 01/02/20 11:30 Ordered PTT,PARTIAL THROMBOPLSTIN TIME [COAG] Q6H Lab 01/02/20 17:30 Ordered Acetaminophen/HYDROcodone [[place] 325-5 MG] Med 01/01/20 09:04 Active 1 tab PO Q6H PRN Heparin Sod,Pork In 0.45% Nacl [Heparin-1/2Ns 25,000 Med 01/01/20 05:30 Active Units/500] 25,000 unit in 500 ml IV TITRATE Lactated Ringers [Ringers, Lactated] 1,000 ml Med 12/31/19 23:45 Active IV ASDIRECTED Morphine Med 01/01/20 09:04 Active See Dose Instructions IVPUSH Q1H PRN Ondansetron [Zofran] Med 01/01/20 09:04 Active 4 mg IVPUSH Q6H PRN Pantoprazole [ProTONIX IV] 40 mg Med 01/01/20 05:31 Active Sodium Chloride 0.9% [Normal Saline] 10 ml IV DAILY Piperacillin/Tazobactam [Piperacil-Tazobact] 3.375 gm Med 01/01/20 00:00 Active Sodium Chloride 0.9% [Normal Saline] 50 ml IV Q8H Medication Orders Hydrocodone Bitart/Acetaminophen ([place] 325-5 Mg) 1 tab PO Q6H PRN PRN Reason: Pain (moderate 4-6) Lactated Ringer's (Ringers, Lactated) 1,000 mls @ 125 mls/hr IV ASDIRECTED NANY Last Admin: 01/01/20 11:29 Dose: 125 mls/hr Documented by: Infusion: 01/01/20 10:08 Dose: 125 mls/hr Documented by: Admin: 01/01/20 02:08 Dose: 125 mls/hr Documented by: SY Piperacillin Sod/Tazobactam (Sod 3.375 gm/ Sodium Chloride) 50 mls @ 100 mls/hr IV Q8H [facility] Last Admin: 01/01/20 08:15 Dose: 100 mls/hr Documented by: Infusion: 01/01/20 01:45 Dose: 100 mls/hr Documented by: Admin: 01/01/20 01:15 Dose: 100 mls/hr Documented by: SY Heparin Sodium/Sodium Chloride (Heparin-1/2ns 25,000 Units/500) 25,000 unit in 500 mls @ 26 mls/hr IV TITRATE [facility]; Protocol Last Admin: 01/01/20 06:29 Dose: 1,300 units/hr, 26 mls/hr Documented by: SY Cosigned by: MOISES Pantoprazole Sodium 40 mg/ (Sodium Chloride) 10 mls @ 300 mls/hr IV DAILY [facility] Last Admin: 01/01/20 05:46 Dose: 300 mls/hr Documented by: SY Morphine Sulfate (Morphine) 0 mg IVPUSH Q1H PRN PRN Reason: Pain (severe 7-10) Ondansetron HCl (Zofran) 4 mg IVPUSH Q6H PRN PRN Reason: Nausea/Vomiting Assessment/Plan Comment:: GI symptoms seem to be more of an ileus as he has hypoactive bowel sounds, no distension and is passing gas. CT scan also showed a pulmonary embolus on the right side. He has been started on a heparin drip. Hospitalist service has been consulted for management of his heparin drip and treatment of his pulmonary embolus. - Mortality Measure Prognosis:: Good
[2020-01-01] MEDS: Heparin Sod,Pork In 0.45% Nacl 25,000 UNIT/500 ML IV.SOLN IV SCH ×2 (12:55→23:16)
--- NOTE | 2020-01-01 13:18 | PCM.CONS ---
H&P History of Present Illness - General Date of Service: 01/01/20 Admit Problem/Dx: Admission Diagnosis/Problem Admission Diagnosis/Problem Ileus - History of Present Illness Initial Comments - Free Text/Narative: 44 yo male who is s/p 4 days of laparoscopic appendectomy. At home patient reported to have nausea and vomiting for the past two days. He presented back to the ED and CT scan of abdomen showed possible early SBO. CTA reported small thrombi of the right middle and lower lobes. Pateint report some mild chest discomfort on deep breathing. He denies any shortness of breath. - Related Data Allergies/Adverse Reactions: Allergies Allergy/AdvReac Type Severity Reaction Status Date / Time No Known Allergies Allergy Verified 12/31/19 20:43 Home Medications: Home Meds Hydrocodone/Acetaminophen [Hydrocodone-Acetamin 10-300 mg] each PO ASDIRECTED PRN 12/31/19 [History] Past Medical History HEENT History: Reports: None Cardiovascular History: Reports: None Respiratory History: Reports: None Genitourinary History: Reports: None Musculoskeletal History: Reports: None Neurological History: Reports: None Psychiatric History: Reports: None Endocrine/Metabolic History: Reports: None Hematologic History: Reports: None Immunologic History: Reports: None Oncologic (Cancer) History: Reports: None Dermatologic History: Reports: None - Infectious Disease History Infectious Disease History: Reports: Chicken Pox - Past Surgical History Head Surgeries/Procedures: Reports: None HEENT Surgical History: Reports: Tonsillectomy GI Surgical History: Reports: Colonoscopy Social & Family History - Family History Family Medical History: Noncontributory - Tobacco Use Smoking Status *Q: Current Every Day Smoker Years of Tobacco use: 1 Packs/Tins Daily: 0.5 Used Tobacco, but Quit: Yes Month/Year Tobacco Last Used: had quit for 13 years and started Second Hand Smoke Exposure: No - Caffeine Use Caffeine Use: Reports: Coffee, Energy Drinks, Soda - Alcohol Use Days Per Week of Alcohol Use: 7 Number of Drinks Per Day: 2 Total Drinks Per Week: 14 Date of Last Drink: 12/28/19 - Recreational Drug Use Recreational Drug Use: No H&P Review of Systems - Review of Systems: Review Of Systems: Comprehensive ROS is negative, except as noted in HPI. Exam - Exam Exam: See Below - Vital Signs Vital Signs: Last Vital Signs Temp 36.8 C 01/01/20 08:00 Pulse 77 01/01/20 08:00 Resp 18 01/01/20 08:00 BP 143/84 H 01/01/20 08:00 Pulse Ox 93 L 01/01/20 08:00 Weight: 93.032 kg - Exam General: Alert, Oriented HEENT: Mucosa Moist & [place] Neck: Supple, Trachea Midline. No: JVD Lungs: Clear to Auscultation, Normal Respiratory Effort Cardiovascular: Regular Rate, Regular Rhythm GI/Abdominal Exam: Normal Bowel Sounds, Soft, Non-Tender, No Distention Extremities: Non-Tender, No Pedal Edema Skin: Warm, Dry, Intact Neurological: No: Focal Deficit - Patient Data Lab Results Last 24 hrs: Laboratory Results - last 24 hr 12/31/19 12/31/19 12/31/19 Range/Units 21:19 21:19 21:19 WBC 10.58 (4.0-11.0) K/uL RBC 4.86 (4.50-5.90) M/uL Hgb 16.3 (13.0-17.0) g/dL Hct 46.4 (38.0-50.0) % MCV 95.5 (80.0-98.0) fL MCH 33.5 H (27.0-32.0) pg MCHC 35.1 (31.0-37.0) g/dL RDW Std Deviation 43.2 (28.0-62.0) fl RDW Coeff of Matt 12 (11.0-15.0) % Plt Count 215 (150-400) K/uL MPV 10.70 (7.40-12.00) fL Neut % (Auto) 78.9 (48.0-80.0) % Lymph % (Auto) 8.1 L (16.0-40.0) % [place] % (Auto) 11.2 (0.0-15.0) % Eos % (Auto) 1.6 (0.0-7.0) % Baso % (Auto) 0.2 (0.0-1.5) % Neut # (Auto) 8.3 H (1.4-5.7) K/uL Lymph # (Auto) 0.9 (0.6-2.4) K/uL [place] # (Auto) 1.2 H (0.0-0.8) K/uL Eos # (Auto) 0.2 (0.0-0.7) K/uL Baso # (Auto) 0.0 (0.0-0.1) K/uL Nucleated RBC % 0.0 /100WBC Nucleated RBCs # 0 K/uL INR APTT (18.6-31.3) SEC Lactate 2.7 H* (0.20-2.00) mmol/L Sodium 139 (136-148) mmol/L Potassium 4.0 (3.5-5.1) mmol/L Chloride 99 (98-107) mmol/L Carbon Dioxide 25.3 (21.0-32.0) mmol/L BUN 16 (7.0-18.0) mg/dL Creatinine 1.0 (0.8-1.3) mg/dL Est Cr Clr Drug Dosing 93.28 mL/min Estimated GFR (MDRD) > 60.0 ml/min Glucose 100 (74-106) mg/dL Calcium 9.8 (8.5-10.1) mg/dL Total Bilirubin 0.8 (0.2-1.0) mg/dL AST 20 (15-37) IU/L ALT 26 (14-63) IU/L Alkaline Phosphatase 26 L (46-116) U/L Troponin I (0.000-0.056) ng/mL Total Protein 7.7 (6.4-8.2) g/dL Albumin 3.1 L (3.4-5.0) g/dL Globulin 4.6 H (2.6-4.0) g/dL Albumin/Globulin Ratio 0.7 L (0.9-1.6) Urine Color Urine Appearance Urine pH (5.0-8.0) Ur Specific [place] (1.001-1.035) Urine Protein (NEGATIVE) mg/dL Urine Glucose (UA) (NEGATIVE) mg/dL Urine Ketones (NEGATIVE) mg/dL Urine Occult Blood (NEGATIVE) Urine Nitrite (NEGATIVE) Urine Bilirubin (NEGATIVE) Urine Ictotest Urine Urobilinogen (<2.0) EU/dL Ur Leukocyte Esterase (NEGATIVE) Urine RBC (0-2/HPF) Urine WBC (0-5/HPF) Ur Epithelial Cells (NONE-FEW) Urine Bacteria (NEGATIVE) Urine Mucus (NONE-MOD) 0701/01/20 01/01/20 Range/Units 00:44 01:00 05:00 WBC (4.0-11.0) K/uL RBC (4.50-5.90) M/uL Hgb (13.0-17.0) g/dL Hct (38.0-50.0) % MCV (80.0-98.0) fL MCH (27.0-32.0) pg MCHC (31.0-37.0) g/dL RDW Std Deviation (28.0-62.0) fl RDW Coeff of Matt (11.0-15.0) % Plt Count (150-400) K/uL MPV (7.40-12.00) fL Neut % (Auto) (48.0-80.0) % Lymph % (Auto) (16.0-40.0) % [place] % (Auto) (0.0-15.0) % Eos % (Auto) (0.0-7.0) % Baso % (Auto) (0.0-1.5) % Neut # (Auto) (1.4-5.7) K/uL Lymph # (Auto) (0.6-2.4) K/uL [place] # (Auto) (0.0-0.8) K/uL Eos # (Auto) (0.0-0.7) K/uL Baso # (Auto) (0.0-0.1) K/uL Nucleated RBC % /100WBC Nucleated RBCs # K/uL INR 0.97 APTT (18.6-31.3) SEC Lactate (0.20-2.00) mmol/L Sodium (136-148) mmol/L Potassium (3.5-5.1) mmol/L Chloride (98-107) mmol/L Carbon Dioxide (21.0-32.0) mmol/L BUN (7.0-18.0) mg/dL Creatinine (0.8-1.3) mg/dL Est Cr Clr Drug Dosing mL/min Estimated GFR (MDRD) ml/min Glucose (74-106) mg/dL Calcium (8.5-10.1) mg/dL Total Bilirubin (0.2-1.0) mg/dL AST (15-37) IU/L ALT (14-63) IU/L Alkaline Phosphatase (46-116) U/L Troponin I < 0.050 (0.000-0.056) ng/mL Total Protein (6.4-8.2) g/dL Albumin (3.4-5.0) g/dL Globulin (2.6-4.0) g/dL Albumin/Globulin Ratio (0.9-1.6) Urine Color YELLOW Urine Appearance CLEAR Urine pH 6.0 (5.0-8.0) Ur Specific [place] 1.010 (1.001-1.035) Urine Protein 30 H (NEGATIVE) mg/dL Urine Glucose (UA) NEGATIVE (NEGATIVE) mg/dL Urine Ketones 40 H (NEGATIVE) mg/dL Urine Occult Blood TRACE-INTACT H (NEGATIVE) Urine Nitrite NEGATIVE (NEGATIVE) Urine Bilirubin MODERATE H (NEGATIVE) Urine Ictotest NEGATIVE Urine Urobilinogen 1.0 (<2.0) EU/dL Ur Leukocyte Esterase NEGATIVE (NEGATIVE) Urine RBC NONE SEEN (0-2/HPF) Urine WBC 0-1 (0-5/HPF) Ur Epithelial Cells RARE (NONE-FEW) Urine Bacteria FEW (NEGATIVE) Urine Mucus LIGHT (NONE-MOD) 01/01/20 01/01/20 01/01/20 Range/Units 05:00 08:52 11:45 WBC (4.0-11.0) K/uL RBC (4.50-5.90) M/uL Hgb (13.0-17.0) g/dL Hct (38.0-50.0) % MCV (80.0-98.0) fL MCH (27.0-32.0) pg MCHC (31.0-37.0) g/dL RDW Std Deviation (28.0-62.0) fl RDW Coeff of Matt (11.0-15.0) % Plt Count (150-400) K/uL MPV (7.40-12.00) fL Neut % (Auto) (48.0-80.0) % Lymph % (Auto) (16.0-40.0) % [place] % (Auto) (0.0-15.0) % Eos % (Auto) (0.0-7.0) % Baso % (Auto) (0.0-1.5) % Neut # (Auto) (1.4-5.7) K/uL Lymph # (Auto) (0.6-2.4) K/uL [place] # (Auto) (0.0-0.8) K/uL Eos # (Auto) (0.0-0.7) K/uL Baso # (Auto) (0.0-0.1) K/uL Nucleated RBC % /100WBC Nucleated RBCs # K/uL INR APTT 29.2 37.7 H (18.6-31.3) SEC Lactate 1.0 (0.20-2.00) mmol/L Sodium (136-148) mmol/L Potassium (3.5-5.1) mmol/L Chloride (98-107) mmol/L Carbon Dioxide (21.0-32.0) mmol/L BUN (7.0-18.0) mg/dL Creatinine (0.8-1.3) mg/dL Est Cr Clr Drug Dosing mL/min Estimated GFR (MDRD) ml/min Glucose (74-106) mg/dL Calcium (8.5-10.1) mg/dL Total Bilirubin (0.2-1.0) mg/dL AST (15-37) IU/L ALT (14-63) IU/L Alkaline Phosphatase (46-116) U/L Troponin I (0.000-0.056) ng/mL Total Protein (6.4-8.2) g/dL Albumin (3.4-5.0) g/dL Globulin (2.6-4.0) g/dL Albumin/Globulin Ratio (0.9-1.6) Urine Color Urine Appearance Urine pH (5.0-8.0) Ur Specific [place] (1.001-1.035) Urine Protein (NEGATIVE) mg/dL Urine Glucose (UA) (NEGATIVE) mg/dL Urine Ketones (NEGATIVE) mg/dL Urine Occult Blood (NEGATIVE) Urine Nitrite (NEGATIVE) Urine Bilirubin (NEGATIVE) Urine Ictotest Urine Urobilinogen (<2.0) EU/dL Ur Leukocyte Esterase (NEGATIVE) Urine RBC (0-2/HPF) Urine WBC (0-5/HPF) Ur Epithelial Cells (NONE-FEW) Urine Bacteria (NEGATIVE) Urine Mucus (NONE-MOD) Result Diagrams: 12/31/19 21:19 12/31/19 21:19 Sepsis Event Note - Evaluation Sepsis Screening Result: No Definite Risk - Focused Exam Vital Signs: Vital Signs Temp Pulse Resp BP Pulse Ox 01/01/20 08:00 36.8 C 77 18 143/84 H 93 L 01/01/20 04:40 37.4 C 86 18 147/85 H 96 Date Exam was Performed: 01/02/20 Time Exam was Performed: 13:53 Consult PN Assessment/Plan Procedures: Procedures ASSAY OF LIPASE (12/28/19) ASSAY OF TROPONIN QUANT (12/28/19) COMPLETE CBC W/AUTO DIFF WBC (12/28/19) COMPREHEN METABOLIC PANEL (12/28/19) CRITICAL CARE FIRST HOUR (12/28/19) CT ABD & PELV W/CONTRAST (12/28/19) ELECTROCARDIOGRAM TRACING (12/28/19) LAPAROSCOPY APPENDECTOMY (12/28/19) ROUTINE VENIPUNCTURE (12/28/19) SARS-COV2 COVID-19 AMP PRB (12/28/19) THER/PROPH/DIAG INJ IV PUSH (12/28/19) TX/PRO/DX INJ NEW DRUG ADDON (12/28/19) TX/PRO/DX INJ SAME DRUG DIRECTOR OF SPEECH PATHOLOGY (12/28/19) URINALYSIS AUTO W/SCOPE (12/28/19) Problem List Initiated/Reviewed/Updated: No Plan: 44 yo male admitted for post op ileus and found to have PE. We will treat with heparin drip for now. When patient can tolerate oral medications will consider switching to Eliquis.
[2020-01-01] MEDS: Acetaminophen/HYDROcodone 325-5 MG Tab PO PRN (18:04)
[2020-01-01] MEDS ORDERED: Heparin Sodium 5,000 Units/ML Vial IVPUSH STA (23:58)
[2020-01-02] MEDS ORDERED: Heparin Sodium 5,000 Units/ML Vial ONE
[2020-01-02] MEDS: Acetaminophen/HYDROcodone 325-5 MG Tab PO PRN ×2 (00:08→10:42)
[2020-01-02] MEDS: Lactated Ringers 1,000 ML IV SCH ×2 (05:40→13:00)
[2020-01-02] MEDS: Pantoprazole 40 MG in Sodium Chloride 0.9% 10 ML IV SCH (08:05)
[2020-01-02] MEDS: Piperacillin/Tazobactam 3.375 GM in Sodium Chloride 0.9% 50 ML IV SCH (08:10)
[2020-01-02] MEDS ORDERED: Heparin Sodium 5,000 Units/ML Vial IVPUSH ONE (12:47)
[2020-01-02] MEDS: Heparin Sod,Pork In 0.45% Nacl 25,000 UNIT/500 ML IV.SOLN IV SCH (12:54)
--- NOTE | 2020-01-02 13:55 | PCM.CONSN ---
- General Info Date of Service: 01/02/20 - Review of Systems Systems Review Comment:: patient feeling better, tolerating oral diet, no chest pain, no shortness of breath. - Patient Data Vitals - Most Recent: Last Vital Signs Temp 36.9 C 01/02/20 12:11 Pulse 81 01/02/20 12:11 Resp 20 01/02/20 12:11 BP 163/93 H 01/02/20 12:11 Pulse Ox 94 L 01/02/20 12:11 Weight - Most Recent: 93.032 kg I&O - Last 24 Hours: Intake & Output 01/01/20 01/02/20 01/02/20 22:59 06:59 14:59 Intake Total 5169 882 7737 Output Total 650 Balance 1259 -400 1260 Lab Results Last 24 Hours: Laboratory Results - last 24 hr 01/01/20 01/01/20 01/02/20 Range/Units 17:30 23:38 05:30 APTT 41.1 H 55.3 H 55.5 H (18.6-31.3) SEC 01/02/20 Range/Units 11:41 APTT 46.3 H (18.6-31.3) SEC Med Orders - Current: Current Medications Hydrocodone Bitart/Acetaminophen ([place] 325-5 Mg) 1 tab PO Q6H PRN PRN Reason: Pain (moderate 4-6) Last Admin: 01/02/20 10:42 Dose: 1 tab Documented by: Lactated Ringer's (Ringers, Lactated) 1,000 mls @ 125 mls/hr IV ASDIRECTED NANY Last Admin: 01/02/20 13:00 Dose: 125 mls/hr Documented by: Piperacillin Sod/Tazobactam (Sod 3.375 gm/ Sodium Chloride) 50 mls @ 100 mls/hr IV Q8H NANY Last Admin: 01/02/20 08:10 Dose: 100 mls/hr Documented by: Pantoprazole Sodium 40 mg/ (Sodium Chloride) 10 mls @ 300 mls/hr IV DAILY NANY Last Admin: 01/02/20 08:05 Dose: 300 mls/hr Documented by: Heparin Sodium/Sodium Chloride (Heparin-1/2ns 25,000 Units/500) 25,000 unit in 500 mls @ 26.049 mls/hr IV TITRATE NANY; Protocol Last Titration: 01/02/20 13:00 Dose: 22 units/kg/hr, 40.934 mls/hr Documented by: Morphine Sulfate (Morphine) 0 mg IVPUSH Q1H PRN PRN Reason: Pain (severe 7-10) Ondansetron HCl (Zofran) 4 mg IVPUSH Q6H PRN PRN Reason: Nausea/Vomiting Last Admin: 01/01/20 18:04 Dose: 4 mg Documented by: Discontinued Medications Heparin Sodium (Porcine) (Heparin Sodium) 5,000 units IVPUSH ONETIME ONE Stop: 01/01/20 05:33 Last Admin: 01/01/20 06:26 Dose: 5,000 units Documented by: Heparin Sodium (Porcine) (Heparin Sodium) 1,500 units IVPUSH ONETIME ONE Stop: 01/01/20 12:34 Last Admin: 01/01/20 12:54 Dose: 1,500 units Documented by: Heparin Sodium (Porcine) (Heparin Sodium) 1,500 units IVPUSH ONETIME ONE Stop: 01/01/20 18:18 Last Admin: 01/01/20 18:31 Dose: 1,500 units Documented by: Heparin Sodium (Porcine) (Heparin Sodium) 1,500 units IVPUSH STAT STA Stop: 01/01/20 23:59 Last Admin: 01/02/20 00:06 Dose: 1,500 units Documented by: Heparin Sodium (Porcine) (Heparin Sodium) Confirm Administered Dose 5,000 units .ROUTE .STK-MED ONE Stop: 01/02/20 00:01 Last Admin: 01/02/20 05:39 Dose: Not Given Documented by: Heparin Sodium (Porcine) (Heparin Sodium) 1,500 units IVPUSH ONETIME ONE Stop: 01/02/20 12:48 Last Admin: 01/02/20 12:58 Dose: 1,500 units Documented by: Sodium Chloride (Normal Saline) 1,000 mls @ 999 mls/hr IV STAT ONE Stop: 12/31/19 21:47 Last Admin: 12/31/19 21:20 Dose: 999 mls/hr Documented by: Lactated Ringer's (Ringers, Lactated) 1,000 mls @ 999 mls/hr IV .BOLUS ONE Stop: 01/01/20 00:26 Last Admin: 01/01/20 00:21 Dose: 999 mls/hr Documented by: Piperacillin Sod/Tazobactam (Sod 4.5 gm/ Sodium Chloride) 100 mls @ 200 mls/hr IV STAT ONE Stop: 01/01/20 00:13 Last Admin: 01/01/20 00:36 Dose: Not Given Documented by: Vancomycin HCl 1.5 gm/ (Dextrose/Water) 250 mls @ 167 mls/hr IV ONETIME ONE Stop: 01/01/20 01:13 Last Admin: 01/01/20 01:09 Dose: Not Given Documented by: Pantoprazole Sodium 40 mg/ (Sodium Chloride) 10 mls @ 300 mls/hr IV DAILY NANY Heparin Sodium/Sodium Chloride (Heparin-1/2ns 25,000 Units/500) 25,000 unit in 500 mls @ 26 mls/hr IV TITRATE NANY; Protocol Last Admin: 01/01/20 06:29 Dose: 1,300 units/hr, 26 mls/hr Documented by: Iopamidol ([id number] (76%)) 100 ml IVPUSH ONETIME STA Stop: 12/31/19 22:17 Last Admin: 12/31/19 22:17 Dose: 100 ml Documented by: Iopamidol (Isovue-370 (76%)) 50 ml IV ONETIME STA Stop: 01/01/20 02:54 Last Admin: 01/01/20 02:54 Dose: 50 ml Documented by: Ondansetron HCl (Zofran) 4 mg IVPUSH ONETIME ONE Stop: 12/31/19 20:48 Last Admin: 12/31/19 21:20 Dose: 4 mg Documented by: - Exam General: Alert, Oriented Neck: Supple Lungs: Clear to Auscultation, Normal Respiratory Effort Cardiovascular: Regular Rate, Regular Rhythm Extremities: Non-Tender, No Pedal Edema Skin: Warm, Dry, Intact Neurological: No New Focal Deficit Sepsis Event Note - Evaluation Sepsis Screening Result: No Definite Risk - Focused Exam Vital Signs: Vital Signs Temp Pulse Resp BP Pulse Ox 01/02/20 12:11 36.9 C 81 20 163/93 H 94 L 01/02/20 08:14 36.6 C 90 66 H 156/109 H 94 L 01/02/20 04:00 36.5 C 75 16 166/99 H 91 L Date Exam was Performed: 01/02/20 Time Exam was Performed: 13:53 Consult PN Assessment/Plan Procedures: Procedures ASSAY OF LIPASE (12/28/19) ASSAY OF TROPONIN QUANT (12/28/19) COMPLETE CBC W/AUTO DIFF WBC (12/28/19) COMPREHEN METABOLIC PANEL (12/28/19) CRITICAL CARE FIRST HOUR (12/28/19) CT ABD & PELV W/CONTRAST (12/28/19) ELECTROCARDIOGRAM TRACING (12/28/19) LAPAROSCOPY APPENDECTOMY (12/28/19) ROUTINE VENIPUNCTURE (12/28/19) SARS-COV2 COVID-19 AMP PRB (12/28/19) THER/PROPH/DIAG INJ IV PUSH (12/28/19) TX/PRO/DX INJ NEW DRUG ADDON (12/28/19) TX/PRO/DX 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 I would recommend starting Eliquis at the time of stopping heparin drip. I wrote script for Eliquis for patient incase he is discharged today.
[2020-01-02] MEDS ORDERED: Apixaban 5 MG Tab PO ONE ×2 (14:29→14:42)
== END 2020-01-02 15:30 | disposition home or self-care (01) ==
LOC: MW.ED 19:57 → MW.MS 23:48
PROVIDERS: ADMIT Surgery; ATTEND Surgery
DX: K91.89 Other postprocedural complications and disorders of digestive system (principal); K56.7 Ileus, unspecified; I26.99 Other pulmonary embolism without acute cor pulmonale; F17.210 Nicotine dependence, cigarettes, uncomplicated; Z98.890 Other specified postprocedural states
CPT/HCPCS: 36415; 71046; 71275; 74177; 80053; 81001; 83605; 84484; 85025; 85610; 85730; 96361; 96365; 96366; 96367; 96375; 96376; 99285; A9270; C9113; G0378; J1644; J2405; J2543; J7030; J7050; J7120; Q9967; 96374; 99283

== ENCOUNTER 2023-07-01 07:17 | Day surgery (SDC) | payer OTHER ==
[2023-07-01] MEDS ORDERED: Lactated Ringers 1,000 ML IV SCH (08:00)
[2023-07-01] MEDS ORDERED: Propofol 200 MG/20 ML SDV ONE (08:38)
[2023-07-01] MEDS ORDERED: Lidocaine 2% 5 ML SDV ONE (08:38)
== END 2023-07-01 09:22 | disposition home or self-care (01) ==
LOC: MW.SDS 07:17
PROVIDERS: ATTEND Surgery
DX: Z12.11 Encounter for screening for malignant neoplasm of colon (principal); K57.30 Diverticulosis of large intestine without perforation or abscess without bleeding; Z86.010 Personal history of colon polyps; I10 Essential (primary) hypertension; F10.90 Alcohol use, unspecified, uncomplicated; F17.210 Nicotine dependence, cigarettes, uncomplicated; Z79.899 Other long term (current) drug therapy; Z91.018 Allergy to other foods
CPT/HCPCS: 45378; J2704; J7120; 00812; J3490